=== PATIENT | female | born 1950 | race Caucasian/White ===

== ENCOUNTER 2018-07-06 07:35 | Inpatient (IN) ==
[2018-07-06] MEDS ORDERED: Ondansetron ODT 4 MG TAB.RAPDIS SL ONE (07:47)
[2018-07-06] MEDS ORDERED: *HR* FentaNYL (PF) 100 MCG/2 ML VIAL IVP ONE (07:47)
--- NOTE | 2018-07-06 07:53 | Emergency Department Note ---
Disposition Clinical Impression: Abdominal pain, Gastric ulcer, Intra-abdominal free air of unknown etiology Disposition: Admitted As Inpatient Condition: Fair Time of Disposition: 12:16 Abdominal Pain HPI - General Chief Complaint: ED Abdominal Pain Stated Complaint: ABD Pain Time Seen by Provider: 07/06/18 07:35 Source: patient Mode of arrival: EMS Limitations: no limitations Vital Signs Reviewed: Yes - History of Present Illness HPI Narrative: 67-year-old female past medical history of arthritis and diabetes presenting to the emergency department with one-week history of epigastric abdominal pain. Patient states that the pain has been progressively worsening over this time; however, this morning she was woken out of her sleep due to severe sharp epigastric pain. Says that she has never experienced pain like this before, and states that it is associated with nausea and vomiting. She states that she has vomited twice today. The vomitus is clear. She is unable to tolerate anything by mouth at this time secondary to nausea, states that her last by mouth intake was previous night. She denies any radiation of the pain. Denies any fevers, chills, chest pain, shortness of breath. Denies any diarrhea, hematochezia, or melena. She states she did recently have a UTI, but that was treated and she is no longer experiencing dysuria. Patient reports that she has been taking meloxicam for the previous year for arthritis, she is also been supplementing this with [id number] ibuprofen and Aleve. No history of peptic ulcers or H. pylori. - Related Data Allergies Allergy/AdvReac Type Severity Reaction Status Date / Time lisinopril AdvReac Cough Verified 07/06/18 07:47 naproxen AdvReac Abdominal Verified 07/06/18 07:47 Pain Constitutional: Denies: fever, chills Eyes: Denies: vision change Cardiovascular: Denies: chest pain Respiratory: Denies: dyspnea Gastrointestinal: Reports: abdominal pain, nausea, vomiting. Denies: diarrhea, constipation, melena, hematochezia Genitourinary: Denies: dysuria Neurological: Denies: headache Psychiatric: Denies: anxiety Abdominal Pain PMH - Past Medical History Medical history: Reports: diabetes, hypertension Psychiatric history: Reports: panic disorder - Social History Smoking status: Never smoker Alcohol use: Reports: none Drug use: Reports: none Physical Exam - General Limitations: no limitations General appearance: alert, in distress - Head Head exam: atraumatic, normocephalic - Eye Eye exam: Present: normal appearance - Neck Neck exam: Present: trachea midline - Chest Chest inspection: Present: normal inspection, symmetric chest wall rise - Respiratory Respiratory exam: Present: normal lung sounds bilaterally. Absent: wheezes - Cardiovascular Cardiovascular exam: Present: regular rate, normal rhythm, +S1, +S2 - Abdominal Exam Abdominal exam: Present: tenderness, guarding, rigidity Abdominal tenderness: Present: epigastrium - Extremities Exam Extremities exam: Present: pedal edema - Neurological Exam Neurological exam: Present: alert, oriented X3 - Psychiatric Psychiatric exam: Present: anxious - Skin Skin exam: Present: warm, dry, intact Course Course Narrative: 07:54 67-year-old female presenting with a one-week history of epigastric abdominal pain. Acute worsening of the pain this morning associated with nausea and 2 episodes of clear vomitus. Patient is in moderate distress. There is epigastric tenderness to palpation with guarding and rigidity. Will treat patient's pain and nausea symptoms. Will obtain abdominal labs and obtain CT abdomen. Patient has a history of chronic NSAID use, she is on meloxicam and has been supplementing with Aleve and ibuprofen as well. Concern for underlying gastritis versus peptic ulcer disease. We will also provide the patient with Pepcid and assess for response. 09:02 Received call from nurse, patient is having bradycardic episodes when she vomits. Suspect this was a vasovagal response to the vomiting. Episode was brief and the nurse was unable to capture an EKG during that time. Gave patient 8 mg Zofran for symptomatically control. 10:42 Received call from [facility] to inform that the patient has evidence of intraperitoneal air along with edema of the gastric antrum likely representing a perforated viscus ulcer. There were also incidental findings of an enlarged uterus with findings concerning for endometrial hyperplasia which would require further outpatient workup. Placed call to surgery, awaiting response. 11:49 Surgery agreed to evaluate the patient in the emergency department. Patient will be admitted to the hospital. Vital Signs Temperature 98.3 F 07/06/18 07:42 Pulse Rate 68 07/06/18 07:42 Respiratory Rate 18 07/06/18 07:42 Blood Pressure 157/74 07/06/18 07:42 O2 Sat by Pulse Oximetry 95 07/06/18 07:42 Temperature 98.3 F 07/06/18 07:42 Pulse Rate 81 07/06/18 11:11 Respiratory Rate 18 07/06/18 11:11 Blood Pressure 122/80 07/06/18 11:11 O2 Sat by Pulse Oximetry 94 07/06/18 11:11 Oxygen Delivery Oxygen Delivery Room Air Abdominal Pain - MDM Narrative Medical decision making narrative: 67-year-old female presenting to the emergency department due to 7 day history of epigastric pain which was severe this morning it woke her up out of her sleep. Patient states that she has a history of arthritis and has been taking meloxicam for over a year and admits to supplementing with other NSAIDs as well. No known history of ulcers or gastritis, however CT scan imaging in the emergency department revealed intraperitoneal free air as well as edema of the antrum of the stomach indicating a likely perforated viscus ulcer. Surgery was called and evaluated the patient. Patient will be admitted to the hospital. Patient received IV antibiotics and Protonix while in the emergency department. Her pain and nausea were managed. Abdomen/Pelvis CT 07/06/18 08:27 IMPRESSION: Intraperitoneal free air most likely from perforated gastric ulcer with moderate mural thickening of the gastric antrum. Associated mild ascites and right pleural effusion. Large uterine mass with mixed density primarily central. While this could represent a large degenerating fibroid, uterine or endometrial malignancy should also be considered. Further evaluation with pelvic ultrasound or MRI is recommended when feasible. Subtle higher density material layering dependently within the gallbladder possible noncalcified stones or sludge. Findings were discussed with Dr. Johansen, the resident working with Dr. Tomás Alvarez at 10:36 am on 07/06/2018. D/ / Kip Bansal MD / Kip Bansal MD Interpreting Provider: Kip Bansal MD - Medical Records Medical records reviewed: Yes I reviewed the patient's medical records. - Lab Data Lab results reviewed: Yes I reviewed the patient's lab results. Result diagrams: 07/06/18 07:56 07/06/18 07:56 Lab Results 07/06/18 07/06/18 07/06/18 Range/Units 07:56 07:56 07:56 WBC 8.3 (4.3-11.1) K/mcL RBC 4.21 (3.82-4.97) M/mcL Hgb 11.7 (11.5-15.4) g/dL Hct 37.2 (35.3-44.9) % MCV 88.4 (83.0-100.0) fL MCH 27.8 L (28.0-33.3) pg MCHC 31.5 L (31.6-35.5) g/dL RDW 14.3 (11.5-14.5) % Plt Count 238 (140-400) K/mcL MPV 8.7 L (9.4-12.4) fL Immature Gran % 0.2 (0-4) % Seg Neutrophils % 57.8 % Lymphocytes % 27.4 % Monocytes % 7.0 % Eosinophils % 7.0 % Basophils % 0.6 % Neutrophils # 4.8 (1.6-8.9) K/mcL Lymphocytes # 2.3 (0.6-4.6) K/mcL Monocytes # 0.6 (0.0-1.3) K/mcL Eosinophils # 0.6 (0.0-0.6) K/mcL Basophils # 0.1 (0.0-0.2) K/mcL Sodium 141 (136-145) mEq/L Potassium 3.2 L (3.5-5.1) mEq/L Chloride 112 H (98-107) mEq/L Carbon Dioxide 23 (23-29) mEq/L BUN 16 (8-23) mg/dL Creatinine 0.67 (0.60-1.20) mg/dL Est GFR ( Amer) > 60 (> 60) Est GFR (Non-Af Amer) > 60 (> 60) BUN/Creatinine Ratio 24 (6-26) Glucose 125 H (70-105) mg/dL Calculated Osmolality 295 (280-300) Lactic Acid 1.8 (0.5-2.2) mmol/L Calcium 7.6 L (8.6-10.3) mg/dL Total Bilirubin 0.3 (0.3-1.0) mg/dL Direct Bilirubin 0.0 (0.0-0.2) mg/dL Indirect Bilirubin 0.3 (0.0-1.2) mg/dL AST 11 L (13-39) Units/L ALT 8 (7-52) Units/L Alkaline Phosphatase 62 (34-104) Units/L Troponin I < 0.03 (< 0.04) ng/mL Serum Total Protein 5.3 L (6.4-8.9) g/dL Albumin 3.1 L (3.5-5.7) g/dL Globulin 2.2 L (2.4-3.5) g/dL Albumin/Globulin Ratio 1.4 (1.1-2.2) Lipase 73 (11-82) Units/L 07/06/18 Range/Units 11:03 WBC (4.3-11.1) K/mcL RBC (3.82-4.97) M/mcL Hgb (11.5-15.4) g/dL Hct (35.3-44.9) % MCV (83.0-100.0) fL MCH (28.0-33.3) pg MCHC (31.6-35.5) g/dL RDW (11.5-14.5) % Plt Count (140-400) K/mcL MPV (9.4-12.4) fL Immature Gran % (0-4) % Seg Neutrophils % % Lymphocytes % % Monocytes % % Eosinophils % % Basophils % % Neutrophils # (1.6-8.9) K/mcL Lymphocytes # (0.6-4.6) K/mcL Monocytes # (0.0-1.3) K/mcL Eosinophils # (0.0-0.6) K/mcL Basophils # (0.0-0.2) K/mcL Sodium (136-145) mEq/L Potassium (3.5-5.1) mEq/L Chloride (98-107) mEq/L Carbon Dioxide (23-29) mEq/L BUN (8-23) mg/dL Creatinine (0.60-1.20) mg/dL Est GFR ( Amer) (> 60) Est GFR (Non-Af Amer) (> 60) BUN/Creatinine Ratio (6-26) Glucose (70-105) mg/dL Calculated Osmolality (280-300) Lactic Acid 1.3 (0.5-2.2) mmol/L Calcium (8.6-10.3) mg/dL Total Bilirubin (0.3-1.0) mg/dL Direct Bilirubin (0.0-0.2) mg/dL Indirect Bilirubin (0.0-1.2) mg/dL AST (13-39) Units/L ALT (7-52) Units/L Alkaline Phosphatase (34-104) Units/L Troponin I (< 0.04) ng/mL Serum Total Protein (6.4-8.9) g/dL Albumin (3.5-5.7) g/dL Globulin (2.4-3.5) g/dL Albumin/Globulin Ratio (1.1-2.2) Lipase (11-82) Units/L - Radiology Data Radiology results reviewed: Yes I reviewed the patient's radiology results. - EKG Data EKG attestation: Yes I reviewed and interpreted this EKG. EKG results narrative: EKG shows sinus rhythm with a heart rate of 68. No axis deviation. Early RV progression. Normal [place] interval, no QT elongation. No obvious ST elevations or depressions. Sinus rhythm, normal EKG. Attestation Statement - Attestation Attestation: I, Momo Rm DO, examined this patient [id number] and my medical decision-making was reviewed with Jayy Christy PGY-1, Resident Physician. I agree with the documented findings, disposition and treatment plan as described except to the extent set forth below. Please see my progress notes for details.
[2018-07-06] MEDS ORDERED: Famotidine 20 MG/2 ML VIAL IVP ONE (07:58)
[2018-07-06] MEDS ORDERED: Ondansetron 4 MG/2 ML VIAL ONE (07:58)
[2018-07-06] MEDS ORDERED: Ondansetron 4 MG/2 ML VIAL IVP ONE ×2 (08:11→09:01)
[2018-07-06] MEDS ORDERED: 0.9 % Sodium Chloride 1,000 ML IVC ONE (08:14)
[2018-07-06 08:19] LABS: Basophils # 0.1 K/mcL (0.0-0.2); Basophils % 0.6 %; Eosinophils # 0.6 K/mcL (0.0-0.6); Hematocrit 37.2 % (35.3-44.9); Hemoglobin 11.7 g/dL (11.5-15.4); Immature Granulocytes % 0.2 % (0-4); Lymphocytes # 2.3 K/mcL (0.6-4.6); Lymphocytes % 27.4 %; Mean Corpuscular HGB Conc 31.5 g/dL (31.6-35.5); Mean Corpuscular Hemoglobin 27.8 pg (28.0-33.3); Mean Corpuscular Volume 88.4 fL (83.0-100.0); Mean Platelet Volume 8.7 fL (9.4-12.4); Monocytes # 0.6 K/mcL (0.0-1.3); Neutrophils # 4.8 K/mcL (1.6-8.9); Platelet Count 238 K/mcL (140-400); Red Blood Count 4.21 M/mcL (3.82-4.97); Red Cell Distribution Width 14.3 % (11.5-14.5); Segmented Neutrophils % 57.8 %
[2018-07-06] MEDS ORDERED: Isovue-370 500 ML INFUS..BTL IV ONE (08:27)
--- NOTE | 2018-07-06 08:27 | Emergency Department Note ---
Disposition Clinical Impression: Abdominal pain, Gastric ulcer, Intra-abdominal free air of unknown etiology Disposition: Admitted As Inpatient Condition: Fair Time of Disposition: 12:07 General Adult HPI - General Chief complaint: ED Abdominal Pain Stated complaint: ABD Pain Time Seen by Provider: 07/06/18 07:35 Source: patient Mode of arrival: EMS Limitations: no limitations - History of Present Illness Pain Scale: 9 - Related Data Allergies Allergy/AdvReac Type Severity Reaction Status Date / Time lisinopril AdvReac Cough Verified 07/06/18 07:47 naproxen AdvReac Abdominal Verified 07/06/18 07:47 Pain Constitutional: Denies: fever, chills Eyes: Denies: vision change Cardiovascular: Denies: chest pain Respiratory: Denies: dyspnea Gastrointestinal: Reports: abdominal pain, nausea, vomiting. Denies: diarrhea, constipation, melena, hematochezia Genitourinary: Denies: dysuria Neurological: Denies: headache Psychiatric: Denies: anxiety Past Medical History - Past Medical History Medical history: Reports: diabetes, hypertension Surgical history: Reports: , orthopedic, other Psychiatric history: Reports: panic disorder - Social History Smoking Status: Never smoker Smokeless Tobacco Status: No Alcohol use: Reports: none Drug use: Reports: none Physical Exam - General Limitations: no limitations General appearance: alert, in distress Course Vital Signs Temperature 98.3 F 07/06/18 07:42 Pulse Rate 68 07/06/18 07:42 Respiratory Rate 18 07/06/18 07:42 Blood Pressure 157/74 07/06/18 07:42 O2 Sat by Pulse Oximetry 95 07/06/18 07:42 Temperature 98.3 F 07/06/18 07:42 Pulse Rate 81 07/06/18 11:11 Respiratory Rate 18 07/06/18 11:11 Blood Pressure 122/80 07/06/18 11:11 O2 Sat by Pulse Oximetry 94 07/06/18 11:11 Oxygen Delivery Oxygen Delivery Room Air Medical Decision Making - Lab Data Result diagrams: 07/06/18 07:56 07/06/18 07:56 Lab Results 07/06/18 07/06/18 07/06/18 Range/Units 07:56 07:56 07:56 WBC 8.3 (4.3-11.1) K/mcL RBC 4.21 (3.82-4.97) M/mcL Hgb 11.7 (11.5-15.4) g/dL Hct 37.2 (35.3-44.9) % MCV 88.4 (83.0-100.0) fL MCH 27.8 L (28.0-33.3) pg MCHC 31.5 L (31.6-35.5) g/dL RDW 14.3 (11.5-14.5) % Plt Count 238 (140-400) K/mcL MPV 8.7 L (9.4-12.4) fL Immature Gran % 0.2 (0-4) % Seg Neutrophils % 57.8 % Lymphocytes % 27.4 % Monocytes % 7.0 % Eosinophils % 7.0 % Basophils % 0.6 % Neutrophils # 4.8 (1.6-8.9) K/mcL Lymphocytes # 2.3 (0.6-4.6) K/mcL Monocytes # 0.6 (0.0-1.3) K/mcL Eosinophils # 0.6 (0.0-0.6) K/mcL Basophils # 0.1 (0.0-0.2) K/mcL Sodium 141 (136-145) mEq/L Potassium 3.2 L (3.5-5.1) mEq/L Chloride 112 H (98-107) mEq/L Carbon Dioxide 23 (23-29) mEq/L BUN 16 (8-23) mg/dL Creatinine 0.67 (0.60-1.20) mg/dL Est GFR ( Amer) > 60 (> 60) Est GFR (Non-Af Amer) > 60 (> 60) BUN/Creatinine Ratio 24 (6-26) Glucose 125 H (70-105) mg/dL Calculated Osmolality 295 (280-300) Lactic Acid 1.8 (0.5-2.2) mmol/L Calcium 7.6 L (8.6-10.3) mg/dL Total Bilirubin 0.3 (0.3-1.0) mg/dL Direct Bilirubin 0.0 (0.0-0.2) mg/dL Indirect Bilirubin 0.3 (0.0-1.2) mg/dL AST 11 L (13-39) Units/L ALT 8 (7-52) Units/L Alkaline Phosphatase 62 (34-104) Units/L Troponin I < 0.03 (< 0.04) ng/mL Serum Total Protein 5.3 L (6.4-8.9) g/dL Albumin 3.1 L (3.5-5.7) g/dL Globulin 2.2 L (2.4-3.5) g/dL Albumin/Globulin Ratio 1.4 (1.1-2.2) Lipase 73 (11-82) Units/L //18 Range/Units 11:03 WBC (4.3-11.1) K/mcL RBC (3.82-4.97) M/mcL Hgb (11.5-15.4) g/dL Hct (35.3-44.9) % MCV (83.0-100.0) fL MCH (28.0-33.3) pg MCHC (31.6-35.5) g/dL RDW (11.5-14.5) % Plt Count (140-400) K/mcL MPV (9.4-12.4) fL Immature Gran % (0-4) % Seg Neutrophils % % Lymphocytes % % Monocytes % % Eosinophils % % Basophils % % Neutrophils # (1.6-8.9) K/mcL Lymphocytes # (0.6-4.6) K/mcL Monocytes # (0.0-1.3) K/mcL Eosinophils # (0.0-0.6) K/mcL Basophils # (0.0-0.2) K/mcL Sodium (136-145) mEq/L Potassium (3.5-5.1) mEq/L Chloride (98-107) mEq/L Carbon Dioxide (23-29) mEq/L BUN (8-23) mg/dL Creatinine (0.60-1.20) mg/dL Est GFR ( Amer) (> 60) Est GFR (Non-Af Amer) (> 60) BUN/Creatinine Ratio (6-26) Glucose (70-105) mg/dL Calculated Osmolality (280-300) Lactic Acid 1.3 (0.5-2.2) mmol/L Calcium (8.6-10.3) mg/dL Total Bilirubin (0.3-1.0) mg/dL Direct Bilirubin (0.0-0.2) mg/dL Indirect Bilirubin (0.0-1.2) mg/dL AST (13-39) Units/L ALT (7-52) Units/L Alkaline Phosphatase (34-104) Units/L Troponin I (< 0.04) ng/mL Serum Total Protein (6.4-8.9) g/dL Albumin (3.5-5.7) g/dL Globulin (2.4-3.5) g/dL Albumin/Globulin Ratio (1.1-2.2) Lipase (11-82) Units/L Attestation Statement - Attestation Attestation: I, Momo Rm DO, examined this patient [id number] and my medical decision-making was reviewed with Jayy Christy PGY-1, Resident Physician. I agree with the documented findings, disposition and treatment plan as described except to the extent set forth below. Please see my progress notes for details. 67-year-old female presents to the emergency room with 1 week of epigastric discomfort and pain. She has chronic arthritis and takes Mobic for symptomatic control. She has been adding on Motrin with the Mobic at home. Over the last week every time she eats something her stomach feels better but in between then she has a gnawing burning sensation in her epigastrium. She denies any fevers or chills. Denies any diarrhea. She has had nausea with intermittent vomiting. Denies any falls trauma or injury. Denies any cardiac history and does not have any specific complaint of chest pain or shortness of breath. Patient has not traveled outside the country and has not eaten at any abnormal places. Known in the family has been sick. Physical exam shows a well-appearing female who is in some mild distress. Lungs are clear heart is regular. Abdomen is soft she does have voluntary guarding to the epigastrium. She has no point tenderness or rigidity. Bowel sounds are present in all 4 quadrants. There is no rashes or lesions noted on exam. Patient is in some moderate distress. Fluids nausea medication and Pepcid will be given at this time. Single dose of pain medication has been ordered. Patient will have screening evaluation a chest x-ray EKG CBC chemistry liver function testing and lipase along with urinalysis. TROPONIN will be added on as well with concern for mimicking cardiac related etiology. CT imaging the abdomen will be resulted. Disposition to be determined. Symptoms appear to be most consistent with acute medication- induced gastritis secondary to the overuse of mobile and Motrin. HER symptoms do get better when she eats food and worse when she is sitting with an empty stomach or takes her medication on an empty stomach. Patient is otherwise c linically stable she is in moderate distress at this time and will be further evaluated and treated here in the department. See detailed documentation of the physical exam, medical intervention, medical decision-making and disposition in the resident physician's note. No critical care applied to the patient's treatment course at this time. 1000 CT is reviewed by myself and there is concern for intra-abdominal free air. This is concerning for a perforated peptic ulcer based on this patient's symptoms and presentation. Antibiotic regimen started this time. Once the CT read is at the patient will be discussed and reviewed with the on-call surgeon. No other acute concerns or issues are noted initially at this point. Patient is otherwise been hemodynamically stable. Repeat doses of pain medication have been provided. 1035 Radiology confirmed intra-abdominal free air. There is inflammation around the antrum of the stomach. Is concerning for perforated ulcer. On-call surgeon as well as commercial horticulture instructor will be contacted for admission processes. Antibiotics and pain medication of been given. Pepcid as well as Protonix have been ordered here in the emergency room at this time. Disposition will be admission for continuation of care. Surgery evaluated the patient here in the emergency room and will except the patient to their service for the definitive care. No other recommendations or concerns noted this time. Patient is otherwise clinically stable time of admission
[2018-07-06 08:41] LABS: Troponin I < 0.03 ng/mL (< 0.04)
[2018-07-06 08:42] LABS: Alanine Aminotransferase 8 Units/L (7-52); Albumin 3.1 g/dL (3.5-5.7); Albumin/Globulin Ratio 1.4 (1.1-2.2); Alkaline Phosphatase 62 Units/L (34-104); Aspartate Amino Transferase 11 Units/L (13-39); BUN/Creatinine Ratio 24 (6-26); Bilirubin,Indirect 0.3 mg/dL (0.0-1.2); Bilirubin,Total 0.3 mg/dL (0.3-1.0); Blood Urea Nitrogen 16 mg/dL (8-23); Calcium 7.6 mg/dL (8.6-10.3); Carbon Dioxide 23 mEq/L (23-29); Chloride 112 mEq/L (98-107); Globulin 2.2 g/dL (2.4-3.5); Glucose 125 mg/dL (70-105); Lipase 73 Units/L (11-82); Osmolality,Calculated 295 (280-300); Potassium 3.2 mEq/L (3.5-5.1); Sodium 141 mEq/L (136-145); Total Protein 5.3 g/dL (6.4-8.9); eGFR For Non-African Americans > 60 (> 60)
[2018-07-06] MEDS ORDERED: *HR* HYDROmorphone (PF) 1 MG/ML SYRINGE IVP ONE ×2 (09:09→10:38)
[2018-07-06] MEDS ORDERED: Piperacillin/Tazobactam 3.375 GM in 0.9 % Sodium Chloride Mini Bag 100 ML IVPB ONE (10:22)
[2018-07-06] MEDS ORDERED: Pantoprazole 40 MG VIAL IVP ONE (10:24)
[2018-07-06] MEDS ORDERED: *HR* Promethazine 25 MG/ML VIAL IVP ONE (10:58)
[2018-07-06] MEDS ORDERED: Lidocaine Jelly 11 ml Syringe MM STA (12:51)
[2018-07-06] MEDS ORDERED: Ondansetron 4 MG/2 ML VIAL IVP PRN (12:55)
[2018-07-06] MEDS ORDERED: *HR* Dextrose 50 % in Water (Syg) 50 ML SYRINGE IVP PRN (12:57)
[2018-07-06] MEDS ORDERED: D5% in Water 1,000 ML IVC PRN (12:57)
[2018-07-06] MEDS ORDERED: Dextrose Gel 15 GM/37.5 ML TUBE PO PRN ×2 (12:57)
[2018-07-06 13:57] LABS: Bilirubin,Urine Negative (Negative); Blood,Urine Negative (Negative); Clarity,Urine Clear (Clear); Color,Urine Yellow (Yellow); Glucose,Urine (UA) Normal (Normal); Ketones,Urine Negative (Negative); Leukocyte Esterase,Urine Negative (Negative); Nitrite,Urine Negative (Negative); Protein,Urine Trace mg/dL (Neg-Trace); Specific Gravity,Urine > 1.030 (1.010-1.025); Urobilinogen,Urine Normal (Normal)
--- NOTE | 2018-07-06 14:05 | General Surg History&Physical ---
Date of Encounter: 07/06/18 Time of Encounter: 11:30 Assessment and Plan (1) Perforated gastric ulcer Current Visit: Yes Status: Acute The assessment and plan as outlined above was discussed with the patient and/or family members who expressed understanding and agreement. All questions were answered. CT of the abdomen and pelvis with IV and no oral contrast completed on 07/06/2018 noted free air related to perforated gastric ulcer, moderate mural th ickening of the gastric antrum, mild associated ascites. Perforated gastric ulcer likely exacerbated by meloxicam use. Would avoid NSAIDs in the future. Plan: supportive care and discomfort management NPO NG to low intermittent wall suction PD fluids PRN anti-emetics and pain control repeat a.m. lambs serial abdominal exams Jernigan catheter for accurate intake and output Qualifiers: Gastric ulcer chronicity: acute Qualified Code(s): K25.1 - Acute gastric ulcer with perforation (2) Anxiety disorder Current Visit: Yes Status: Acute chronic xanex BID will continue benzo use prn Qualifiers: Anxiety disorder type: panic disorder without agoraphobia Qualified Code(s): F41.0 - Panic disorder [episodic paroxysmal anxiety] (3) Osteoarthritis Current Visit: Yes Status: Acute IV ofirmev if needed Avoid NSAIDs Qualifiers: Osteoarthritis location: unspecified site Osteoarthritis type: primary Qualified Code(s): M19.91 - Primary osteoarthritis, unspecified site (4) Hypertension Current Visit: Yes Status: Acute PRN metoprolol IV for SBP greater than 150, hold for SBP less than 110 Qualifiers: Hypertension type: essential hypertension Qualified Code(s): I10 - Essential (primary) hypertension (5) Diabetes Current Visit: Yes Status: Acute NPO Q6H accuchecks prn insulin coverage Qualifiers: Diabetes mellitus type: type 2 Diabetes mellitus snf insulin use: without snf use Diabetes mellitus complication status: with unspecified complications Qualified Code(s): E11.8 - Type 2 diabetes mellitus with unspecified complications (6) Uterine mass Current Visit: Yes Status: Acute CT abdomen and pelvis with IV contrast notes the large mass involving the uterus with mixed density, measuring just over 10 cm, primarily involving the endometrial canal with the rind of [place] drama., Urinary bladder is compressed inferior the, small amount of pelvic fluid. Of note she did have a pelvic MRI in October 2015 which demonstrated an enlarged uterus at 14.6 x 12 x 11.5 cm and a large dominant uterine fibroids measuring 10.3 x 9.8 x 10.7 cm. Per record review, she saw Dr. Baeza 05/11/2016 at which time he noted the uterine mass and that her "uterus has been 14 to 16 weeks size for years." He recommended an ultrasound to compare to the MRI but the patient refused. Plan: Consider consult to OB vs outpatient follow-up pending clinical course. History of Present Illness Chief complaint: Mid-upper abdominal pain, vomiting HPI: Ms. Patel is a 67 year old female who has a past medical history of anxiety (on chronic Xanax), hypertension, diabetes GERD (treated with tums and Zantac), osteo arthritis pain (treated with meloxicam), and a past surgical history of orthopedic surgeries, she is never a smoker, denies alcohol or drug use. She reports a family history of colon cancer (brother, in his 40s). She reports her last colonoscopy was approximately 2 years ago and hemorrhoids. She has never had an upper endoscopy. She presented on 07/06/2018 following a seven-day history of mid-upper abdominal pain with an abrupt increase in discomfort this a.m. She states her pain was a 10 out of 10 this a.m. but is currently 8 out of 10 after getting pain medication. She reports vomiting 4 times since 7 AM this morning which was clear, no coffee ground appearance or bright red blood noted. She denies fever, chills, headache, dizziness, chest pain, shortness of breath, constipation, black, bloody, or tarry stool. She reports her last bowel movement was yesterday and she typically has a bowel movement every other day without laxative use. She states she recently had a urinary tract infection for which she was treated and this is resolved. She denies further urinary signs or symptoms. Past Med Surg Social Fam HX - Past Medical History Source: patient, old records reviewed Medical history: arthritis, diabetes, GERD, hypertension Psychiatric history: panic disorder - Past Surgical History Surgical History: , orthopedic, other - Social History Smoking Status: Never smoker Smokeless Tobacco Status: No Alcohol use: none Drug use: none Occupational status: unemployed Current living situation: Home - Independent Activity Level: Independent ambulation Recent Out of Country Travel Within the Last 8 Weeks: No Exposure or Possible Exposure to Illness During Travel: No Medications and Allergies ALPRAZolam [Xanax 0.5 MG Tablet] 0.5 mg PO BID PRN 07/06/18 [History] Aspirin [Adult Aspirin] 81 mg PO DAILY 07/06/18 [History] Atenolol [Tenormin] 50 mg PO DAILY 07/06/18 [History] Losartan/Hydrochlorothiazide [Hyzaar 100-25 Tablet] 1 tab PO DAILY 07/06/18 [History] Meloxicam 15 mg PO DAILY 07/06/18 [History] Multivit-Min/FA/Lycopen/Lutein [A Thru Z Select Multivit Tab] 1 tab PO DAILY 07/06/18 [History] Simvastatin [Zocor] 20 mg PO QPM 07/06/18 [History] metFORMIN [Glucophage] 500 mg PO BIDWM 07/06/18 [History] Allergy/AdvReac Type Severity Reaction Status Date / Time lisinopril AdvReac Cough Verified 07/06/18 07:47 naproxen AdvReac Abdominal Verified 07/06/18 07:47 Pain Review of Systems All systems PM: reviewed and no additional remarkable complaints except as stated All systems PM: The remainder of the systems were reviewed and are negative General Surgery Exam Initial Vital Signs Temp Pulse Resp BP Pulse Ox 98.3 F 68 18 157/74 95 07/06/18 07:42 07/06/18 07:42 07/06/18 07:42 07/06/18 07:42 07/06/18 07:42 Vital Signs Temp Pulse Resp BP Pulse Ox 07/06/18 13:29 98.3 F 83 17 119/77 94 07/06/18 12:13 18 120/60 07/06/18 11:11 81 18 122/80 94 07/06/18 10:00 86 18 120/78 97 07/06/18 09:11 99 07/06/18 09:00 73 18 149/74 99 07/06/18 08:01 71 18 134/95 97 07/06/18 07:42 98.3 F 68 18 157/74 95 Intake and Output 07/05/18 07/06/18 07/06/18 23:59 07:59 15:59 Other: Stool Characteristics Normal for Patient Weight 97.885 kg Patient Weight 07/06/18 23:59 Weight 97.885 kg VITAL SIGNS: Reviewed. See [employer] GENERAL: In no apparent distress. Drowsy. HEENT: Normocephalic, atraumatic, pupils are equal and reactive, extraocular motions intact, oropharynx is pink and moist, there is no neck adenopathy or JVD noted. CHEST/RESPIRATORY: The thorax is free from signs of trauma. Lung sounds: clear to auscultation, normal respiratory effort CARDIAC: Regular rate and rhythm. Normal S1 and S2, without murmurs, gallops, or rubs. VASCULAR: No Edema. 2+ peripheral pulses. ABDOMEN: soft, epigastric tenderness, active bowel sounds, involuntary guarding MUSCULOSKELETAL: Good range of motion of all major joints. Extremities without clubbing, cyanosis or edema. NEUROLOGIC EXAM: Alert and oriented x 3. Speech normal. Follows commands. PSYCHIATRIC: Mood normal. SKIN: No rash or lesions. Results - Labs 07/06/18 07:56 07/06/18 07:56 Abnormal lab results MCH 27.8 pg (28.0-33.3) L 07/06/18 07:56 MCHC 31.5 g/dL (31.6-35.5) L 07/06/18 07:56 MPV 8.7 fL (9.4-12.4) L 07/06/18 07:56 Potassium 3.2 mEq/L (3.5-5.1) L 07/06/18 07:56 Chloride 112 mEq/L (98-107) H 07/06/18 07:56 Glucose 125 mg/dL (70-105) H 07/06/18 07:56 Calcium 7.6 mg/dL (8.6-10.3) L 07/06/18 07:56 AST 11 Units/L (13-39) L 07/06/18 07:56 Serum Total Protein 5.3 g/dL (6.4-8.9) L 07/06/18 07:56 Albumin 3.1 g/dL (3.5-5.7) L 07/06/18 07:56 Globulin 2.2 g/dL (2.4-3.5) L 07/06/18 07:56 Diabetes panel 07/06/18 Range/Units 07:56 Sodium 141 (136-145) mEq/L Potassium 3.2 L (3.5-5.1) mEq/L Chloride 112 H (98-107) mEq/L Carbon Dioxide 23 (23-29) mEq/L BUN 16 (8-23) mg/dL Creatinine 0.67 (0.60-1.20) mg/dL Glucose 125 H (70-105) mg/dL Calcium 7.6 L (8.6-10.3) mg/dL AST 11 L (13-39) Units/L ALT 8 (7-52) Units/L Alkaline Phosphatase 62 (34-104) Units/L Albumin 3.1 L (3.5-5.7) g/dL Calcium panel 07/06/18 Range/Units 07:56 Calcium 7.6 L (8.6-10.3) mg/dL Albumin 3.1 L (3.5-5.7) g/dL Pituitary panel 07/06/18 Range/Units 07:56 Sodium 141 (136-145) mEq/L Potassium 3.2 L (3.5-5.1) mEq/L Chloride 112 H (98-107) mEq/L Carbon Dioxide 23 (23-29) mEq/L BUN 16 (8-23) mg/dL Creatinine 0.67 (0.60-1.20) mg/dL Glucose 125 H (70-105) mg/dL Calcium 7.6 L (8.6-10.3) mg/dL Adrenal panel 07/06/18 Range/Units 07:56 Sodium 141 (136-145) mEq/L Potassium 3.2 L (3.5-5.1) mEq/L Chloride 112 H (98-107) mEq/L Carbon Dioxide 23 (23-29) mEq/L BUN 16 (8-23) mg/dL Creatinine 0.67 (0.60-1.20) mg/dL Glucose 125 H (70-105) mg/dL Calcium 7.6 L (8.6-10.3) mg/dL Total Bilirubin 0.3 (0.3-1.0) mg/dL AST 11 L (13-39) Units/L ALT 8 (7-52) Units/L Alkaline Phosphatase 62 (34-104) Units/L Albumin 3.1 L (3.5-5.7) g/dL All other labs normal. - Imaging CT scan - abdomen: report reviewed, image reviewed CT scan - pelvis: report reviewed, image reviewed
[2018-07-06] MEDS ORDERED: Potassium Chloride 40 MEQ, Lidocaine 1% 2 ML in D5% in Water 500 ML IVPB ONE (14:23)
[2018-07-06 14:27] LABS: Bacteria,Urine Few per hpf (None-Few); Mucus,Urine Few (Few); RBC,Urine 0-3 per hpf (0-3); Squamous Epithelial Cell,Urine Few per lpf (None-Few); WBC,Urine 0-3 per hpf (0-3)
--- NOTE | 2018-07-06 14:36 | Electrocardiograph Report ---
[address] [place] [address] Test Date: 2018-07-06 Pat Name: Taylor Patel Department: EXAM2 Room: 2A44 Gender: F [employer] Internship: : 1950 Requested By: Bambi Pineda (Bill) Order Number: [id number] Reading MD: Dhiraj Lee Measurements Intervals [place] Rate: 40 P: 82 MD: 207 QRS: 29 QRSD: 93 T: 13 QT: 390 QTc: 318 Interpretive Statements Sinus bradycardia with 2:1 AV block Electronically Signed On 07-06-2018 14:35:07 EST by Dhiraj Lee
[2018-07-06 14:54] LABS: Estimated Average Glucose 126 mg/dl
[2018-07-06] MEDS: 0.9 % Sodium Chloride 1,000 ML IVC SCH (15:23)
[2018-07-06] MEDS: OXYCODONE Oral CONC 10 MG/0.5 ML ORAL.SYG SL PRN (15:24)
[2018-07-06] MEDS: Insulin LISPRO 300 UNITS/3 ML VIAL SQ SCH (18:16)
[2018-07-06] MEDS: *HR* Heparin 5,000 UNIT/ML VIAL SQ SCH (18:16)
[2018-07-07] MEDS: 0.9 % Sodium Chloride 1,000 ML IVC SCH ×3 (00:12→18:42)
[2018-07-07] MEDS: Pantoprazole 40 MG VIAL IVP SCH ×3 (00:13→21:12)
[2018-07-07] MEDS: Insulin LISPRO 300 UNITS/3 ML VIAL SQ SCH ×3 (00:53→18:41)
[2018-07-07 05:04] LABS: Basophils % 0.1 %; Hematocrit 35.2 % (35.3-44.9); Hemoglobin 11.1 g/dL (11.5-15.4); Immature Granulocytes % 0.4 % (0-4); Lymphocytes # 1.1 K/mcL (0.6-4.6); Lymphocytes % 10.2 %; Mean Corpuscular HGB Conc 31.5 g/dL (31.6-35.5); Mean Corpuscular Hemoglobin 27.9 pg (28.0-33.3); Mean Corpuscular Volume 88.4 fL (83.0-100.0); Mean Platelet Volume 8.8 fL (9.4-12.4); Monocytes # 1.2 K/mcL (0.0-1.3); Monocytes % 11.7 %; Neutrophils # 8.3 K/mcL (1.6-8.9); Platelet Count 197 K/mcL (140-400); Red Blood Count 3.98 M/mcL (3.82-4.97); Red Cell Distribution Width 14.6 % (11.5-14.5); Segmented Neutrophils % 77.6 %
[2018-07-07 05:45] LABS: BUN/Creatinine Ratio 24 (6-26); Blood Urea Nitrogen 20 mg/dL (8-23); Carbon Dioxide 25 mEq/L (23-29); Chloride 106 mEq/L (98-107); Glucose 132 mg/dL (70-105); Magnesium 1.7 mg/dL (1.6-2.6); Osmolality,Calculated 290 (280-300); Phosphorous 3.3 mg/dL (2.7-4.5); Potassium 4.2 mEq/L (3.5-5.1); Sodium 138 mEq/L (136-145); eGFR For Non-African Americans > 60 (> 60)
[2018-07-07] MEDS: *HR* Promethazine 25 MG/ML VIAL IVP PRN ×2 (05:54→21:12)
[2018-07-07] MEDS: *HR* Heparin 5,000 UNIT/ML VIAL SQ SCH ×2 (05:54→18:34)
--- NOTE | 2018-07-07 07:31 | Electrocardiograph Report ---
[facility] Test Date: 2018-07-06 Pat Name: Taylor Patel Department: EXAM2 Room: 2A44 Gender: F Watch Leader: : 1950 Requested By: Tomás Alvarez Order Number: [id number] Reading MD: Francisco Gregorio Measurements Intervals [place] Rate: 68 P: 23 MS: 188 QRS: 37 QRSD: 86 T: 20 QT: 365 QTc: 389 Interpretive Statements Sinus rhythm Electronically Signed On 07-07-2018 7:29:42 EST by Francisco Gregorio
[2018-07-07] MEDS ORDERED: Lidocaine -MPF 1% 5 ML AMPUL INFILT ONE (10:20)
[2018-07-07] MEDS ORDERED: D10% in Water 500 ML IVC PRN (11:58)
--- NOTE | 2018-07-07 12:27 | General Surgery Progress Note ---
Date of Encounter: 07/07/18 Time of Encounter: 09:00 - Assessment and Plan (1) Perforated gastric ulcer Current Visit: Yes Status: Acute Abd discomfort is improved since yesterday. VSS, WBC remains normal, hgb stable 11.1. Small amount of NG output. Plan: continue supportive care and discomfort management continue NG to low intermittent wall suction. Continue NPO biotene mouth spray and Cipro call lozenges for comfort PIC line start TPN, (titrate total IV fluid MIV + TPN to TPN goal) serial abdominal exams repeat a.m. labs consider upper G.I. on Wednesday or Wednesday pending clinical course. She will need endoscopy next week. Continue IV antibiotics continue PPI BID had Carafate slurry 4 times daily. Clamp NG for 30 minutes after Carafate. P atient will ambulate during the clamps times. Continue EP CDs and incentive spirometry Qualifiers: Gastric ulcer chronicity: acute Qualified Code(s): K25.1 - Acute gastric ulcer with perforation (2) Anxiety disorder Current Visit: Yes Status: Acute Patient takes chronic Xanex at home. We did continue PRN IV benzodiazepines to prevent withdrawal. Qualifiers: Anxiety disorder type: panic disorder without agoraphobia Qualified Code(s): F41.0 - Panic disorder [episodic paroxysmal anxiety] (3) Osteoarthritis Current Visit: Yes Status: Acute Avoid NSAIDs PRN pain control Qualifiers: Osteoarthritis location: unspecified site Osteoarthritis type: primary Qualified Code(s): M19.91 - Primary osteoarthritis, unspecified site (4) Hypertension Current Visit: Yes Status: Acute PRN antihypertensives Qualifiers: Hypertension type: essential hypertension Qualified Code(s): I10 - Essential (primary) hypertension (5) Diabetes Current Visit: Yes Status: Acute Q6 Accu checks sliding scale insulin Qualifiers: Diabetes mellitus type: type 2 Diabetes mellitus superintendent container terminal insulin use: without custodial use Diabetes mellitus complication status: with unspecified complications Qualified Code(s): E11.8 - Type 2 diabetes mellitus with unspecified complications (6) Uterine mass Current Visit: Yes Status: Acute CT abdomen and pelvis with IV contrast notes the large mass involving the uterus with mixed density, measuring just over 10 cm, primarily involving the endometrial canal with the rind of [place] drama., Urinary bladder is compressed inferior the, small amount of pelvic fluid. Of note she did have a pelvic MRI in October 2015 which demonstrated an enlarged uterus at 14.6 x 12 x 11.5 cm and a large dominant uterine fibroids measuring 10.3 x 9.8 x 10.7 cm. Per record review, she saw Dr. Baeza 05/11/2016 at which time he noted the uterine mass and that her "uterus has been 14 to 16 weeks size for years." He recommended an ultrasound to compare to the MRI but the patient refused. Plan: Consider consult to OB vs outpatient follow-up pending clinical course. Subjective Patient reports: no new complaints, feels better, still having pain, pain is less, voiding w/o difficulty (per caldera cath), no flatus, no bowel movement, nausea, afebrile Narrative: No vomiting. Also reports sore throat Objective Vital Signs - Last 8 Hours Temp Pulse Resp BP Pulse Ox 07/07/18 10:41 98.3 F 96 16 157/82 93 07/07/18 06:51 98.7 F 94 16 122/71 93 Intake and Output 07/06/18 07/07/18 07/07/18 23:59 07:59 15:59 Intake Total 100 / 100 125 / 125 1000 / 1000 Output Total 500 / 500 300 / 300 Balance 100 / 100 -375 / -375 700 / 700 Intake: IV Fluids 100 / 100 100 / 100 1000 / 1000 0.9 % Sodium Chloride 1,000 ML 0 / 0 1000 / 1000 @ 125 mls/hr IVC .Q8H NOLAN Rx#: [id number] Ancef 2,000 MG In 0.9 % Sodium 100 / 100 100 / 100 Chloride 100 ML @ 200 mls/hr IVPB Q8HR NOLAN Rx#:[id number] Oral 25 / 25 Output: Gastric Tube Lavage Amount 300 / 300 Right Nare 300 / 300 Catheter 500 / 500 Other: Weight 98.6 kg Blood Glucose* 128 125 Patient Weight 07/07/18 23:59 Weight 98.6 kg - General physical appearance no distress, moderate pain - Eyes normal ocular movement - ENT normal nares (NG secured left nares), atraumatic, normocephalic - Neck Neck exam: trachea midline - Respiratory normal expansion, normal respiratory effort, clear to auscultation - Cardiovascular Cardiovascular exam: Present: RRR, murmurs - Abdomen Abdomen: Present: bowel sounds present, soft, tender Abdominal Tenderness: epigastic - Integumentary no growths - Neurologic normal coordination, normal sensation - Musculoskeletal normal posture - Psychiatric oriented to time, oriented to person, oriented to place, speech is normal, memory intact - Labs 07/07/18 04:32 07/07/18 04:32 Diabetes panel 07/06/18 07/07/18 Range/Units 13:13 04:32 Sodium 138 (136-145) mEq/L Potassium 4.2 D (3.5-5.1) mEq/L Chloride 106 (98-107) mEq/L Carbon Dioxide 25 (23-29) mEq/L BUN 20 (8-23) mg/dL Creatinine 0.85 (0.60-1.20) mg/dL Glucose 132 H (70-105) mg/dL Hemoglobin A1c 6.0 H ( - 5.6) % Calcium 9.0 (8.6-10.3) mg/dL Calcium panel 07/07/18 Range/Units 04:32 Calcium 9.0 (8.6-10.3) mg/dL Phosphorus 3.3 (2.7-4.5) mg/dL Pituitary panel 07/07/18 Range/Units 04:32 Sodium 138 (136-145) mEq/L Potassium 4.2 D (3.5-5.1) mEq/L Chloride 106 (98-107) mEq/L Carbon Dioxide 25 (23-29) mEq/L BUN 20 (8-23) mg/dL Creatinine 0.85 (0.60-1.20) mg/dL Glucose 132 H (70-105) mg/dL Calcium 9.0 (8.6-10.3) mg/dL Adrenal panel 07/07/18 Range/Units 04:32 Sodium 138 (136-145) mEq/L Potassium 4.2 D (3.5-5.1) mEq/L Chloride 106 (98-107) mEq/L Carbon Dioxide 25 (23-29) mEq/L BUN 20 (8-23) mg/dL Creatinine 0.85 (0.60-1.20) mg/dL Glucose 132 H (70-105) mg/dL Calcium 9.0 (8.6-10.3) mg/dL Consult Discharge Plan - Plan Referrals: Ruba Perkins MD [Primary Care Provider] -
[2018-07-07] MEDS: OXYCODONE Oral CONC 10 MG/0.5 ML ORAL.SYG SL PRN ×2 (12:57→18:50)
[2018-07-07] MEDS: Saliva Stimulant 100ml BOTTLE PO PRN ×2 (13:33→18:41)
[2018-07-07] MEDS ORDERED: Clinimix E 5%-15% SOLUTION 2,000 ML with MVI, adult with vitamin K 10 ML IVC SCH (17:00)
[2018-07-07] MEDS: *HR* LORazepam 2 MG/ML VIAL IVP PRN (18:34)
[2018-07-08] MEDS ORDERED: Acetaminophen IV 500 MG/50 ML INFUS..BTL IVPB ONE (01:07)
[2018-07-08] MEDS: OXYCODONE Oral CONC 10 MG/0.5 ML ORAL.SYG SL PRN ×2 (01:41→11:06)
[2018-07-08] MEDS: 0.9 % Sodium Chloride 1,000 ML IVC SCH ×3 (02:53→12:08)
[2018-07-08] MEDS: *HR* Metoprolol 5 MG/5 ML VIAL IVP PRN ×2 (02:56→11:04)
[2018-07-08] MEDS: Insulin LISPRO 300 UNITS/3 ML VIAL SQ SCH ×4 (06:35→17:22)
[2018-07-08 06:37] LABS: Basophils % 0.3 %; Eosinophils # 0.1 K/mcL (0.0-0.6); Eosinophils % 0.7 %; Hematocrit 34.1 % (35.3-44.9); Hemoglobin 10.6 g/dL (11.5-15.4); Immature Granulocytes % 0.3 % (0-4); Lymphocytes % 9.5 %; Mean Corpuscular HGB Conc 31.1 g/dL (31.6-35.5); Mean Platelet Volume 8.8 fL (9.4-12.4); Monocytes # 0.8 K/mcL (0.0-1.3); Monocytes % 7.4 %; Neutrophils # 8.9 K/mcL (1.6-8.9); Platelet Count 190 K/mcL (140-400); Red Blood Count 3.79 M/mcL (3.82-4.97); Red Cell Distribution Width 14.6 % (11.5-14.5); Segmented Neutrophils % 81.8 %
[2018-07-08] MEDS: *HR* Heparin 5,000 UNIT/ML VIAL SQ SCH ×2 (06:37→18:18)
[2018-07-08 06:56] LABS: BUN/Creatinine Ratio 27 (6-26); Blood Urea Nitrogen 20 mg/dL (8-23); Carbon Dioxide 25 mEq/L (23-29); Chloride 109 mEq/L (98-107); Glucose 140 mg/dL (70-105); Magnesium 1.8 mg/dL (1.6-2.6); Osmolality,Calculated 293 (280-300); Phosphorous 2.1 mg/dL (2.7-4.5); Potassium 4.1 mEq/L (3.5-5.1); Sodium 139 mEq/L (136-145); eGFR For Non-African Americans > 60 (> 60)
[2018-07-08] MEDS: Pantoprazole 40 MG VIAL IVP SCH ×2 (08:37→20:46)
[2018-07-08] MEDS: Saliva Stimulant 100ml BOTTLE PO PRN (12:08)
[2018-07-08] MEDS: Furosemide 40 MG/4 ML VIAL IVP SCH (14:20)
[2018-07-08] MEDS ORDERED: *HR* Metoprolol 5 MG/5 ML VIAL IVP STA (14:35)
--- NOTE | 2018-07-08 14:43 | General Surgery Progress Note ---
<Luli Hauser - Last Filed: 07/08/18 14:39> Date of Encounter: 07/08/18 Time of Encounter: 13:00 - Assessment and Plan (1) Perforated gastric ulcer Current Visit: Yes Status: Acute Abd discomfort is improved Improved; however she is noted to be febrile, short of breath at rest, and musical lung sounds. She is noted to be febrile last ni ght 102.5F, she was treated with 500 mg IV Ofirmev. She has been tachycardic since midnight. Of note IV fluids were ordered out 125 mL per hour with a titration order to total IV fluids (M IV and TPN) titrate to TPN goal (83.3). IV fluids were running at 125 mL per hour and TPN at 50 ML's per hour. She was treated with 40 mg IV Lasix, IV fluids were stopped, 5 mg IV metoprolol, and 1 g IV Ofirmev. CXR notes atelectasis versus pneumonia. We will transfer to [facility]. We will also complete a CT of the chest abdomen and pelvis with contrast. Plan: continue supportive care and discomfort management continue NG to low intermittent wall suction. Continue NPO biotene mouth spray and Cipro call lozenges for comfort Continue TPN. serial abdominal exams repeat a.m. labs Continue IV antibiotics continue PPI BID Continue Carafate slurry 4 times daily. Clamp NG for 30 minutes after Carafate. Patient will ambulate during the clamps times. Continue EP CDs and incentive spirometry Qualifiers: Gastric ulcer chronicity: acute Qualified Code(s): K25.1 - Acute gastric ulcer with perforation (2) Shortness of breath Current Visit: Yes Status: Acute Stop 0.9 normal saline 40 IV Lasix given respiratory therapy consult obtained, aggressive pulmonary toileting, scheduled duonebs transfer to [facility]. CT of the chest abdomen and pelvis as above continue to closely monitor (3) Anxiety disorder Current Visit: Yes Status: Acute Patient takes chronic Xanex at home. We did continue PRN IV benzodiazepines to prevent withdrawal. Qualifiers: Anxiety disorder type: panic disorder without agoraphobia Qualified Code(s): F41.0 - Panic disorder [episodic paroxysmal anxiety] (4) Osteoarthritis Current Visit: Yes Status: Acute Avoid NSAIDs PRN pain control Qualifiers: Osteoarthritis location: unspecified site Osteoarthritis type: primary Qualified Code(s): M19.91 - Primary osteoarthritis, unspecified site (5) Hypertension Current Visit: Yes Status: Acute PRN antihypertensives Qualifiers: Hypertension type: essential hypertension Qualified Code(s): I10 - Essential (primary) hypertension (6) Diabetes Current Visit: Yes Status: Acute Q6 Accu checks sliding scale insulin Qualifiers: Diabetes mellitus type: type 2 Diabetes mellitus fpc insulin use: without vermin exterminator use Diabetes mellitus complication status: with unspecified complications Qualified Code(s): E11.8 - Type 2 diabetes mellitus with unspecified complications (7) Uterine mass Current Visit: Yes Status: Acute CT abdomen and pelvis with IV contrast notes the large mass involving the uterus with mixed density, measuring just over 10 cm, primarily involving the endometrial canal with the rind of Samish drama., Urinary bladder is compressed inferior the, small amount of pelvic fluid. Of note she did have a pelvic MRI in October 2015 which demonstrated an enlarged uterus at 14.6 x 12 x 11.5 cm and a large dominant uterine fibroids measuring 10.3 x 9.8 x 10.7 cm. Per record review, she saw Dr. Baeza 05/11/2016 at which time he noted the uterine mass and that her "uterus has been 14 to 16 weeks size for years." He recommended an ultrasound to compare to the MRI but the patient refused. Plan: Consider consult to OB vs outpatient follow-up pending clinical course. Subjective Patient reports: pain is less, voiding w/o difficulty (per caldera), no flatus, no bowel movement, shortness of breath, fever Objective Vital Signs - Last 8 Hours Temp Pulse Resp BP Pulse Ox 07/08/18 14:32 101.3 F H 07/08/18 10:42 98.4 F 140 20 170/83 93 07/08/18 06:56 98.5 F 112 20 148/79 93 Intake and Output 07/07/18 07/08/18 07/08/18 23:59 07:59 15:59 Intake Total 100 / 100 1100 / 1100 1000 / 1000 Output Total 850 / 850 400 / 400 1050 / 1050 Balance -750 / -750 700 / 700 -50 / -50 Intake: IV Fluids 100 / 100 1100 / 1100 1000 / 1000 0.9 % Sodium Chloride 1,000 ML 1000 / 1000 1000 / 1000 @ 125 mls/hr IVC .Q8H [facility] Rx#: [id number] Ancef 2,000 MG In 0.9 % Sodium 100 / 100 100 / 100 Chloride 100 ML @ 200 mls/hr IVPB Q8HR [facility] Rx#:[id number] Output: Urine 350 / 350 Gastric Tube Lavage Amount 700 / 700 Right Nare 700 / 700 Catheter 850 / 850 400 / 400 Other: Blood Glucose* 135 127 - General physical appearance no distress, other (SOB at rest) - Eyes normal ocular movement - ENT normal nares (NG secured) - Neck Neck exam: trachea midline - Respiratory other (Decreased musical lungs) - Cardiovascular Cardiovascular exam: Present: tachycardia - Abdomen Abdomen: Present: soft, tender (improving). Absent: bowel sounds present Hernia: none - Integumentary no rash - Neurologic normal sensation - Musculoskeletal normal posture - Psychiatric oriented to time, oriented to person, oriented to place, speech is normal, memory intact - Labs 07/08/18 06:25 07/08/18 06:25 Diabetes panel 07/08/18 07/08/18 Range/Units 06:25 06:25 Sodium 139 (136-145) mEq/L Potassium 4.1 (3.5-5.1) mEq/L Chloride 109 H (98-107) mEq/L Carbon Dioxide 25 (23-29) mEq/L BUN 20 (8-23) mg/dL Creatinine 0.75 (0.60-1.20) mg/dL Glucose 140 H (70-105) mg/dL Calcium 9.0 (8.6-10.3) mg/dL Triglycerides 95 (< 150) mg/dL Calcium panel 07/08/18 Range/Units 06:25 Calcium 9.0 (8.6-10.3) mg/dL Phosphorus 2.1 L (2.7-4.5) mg/dL Pituitary panel 07/08/18 Range/Units 06:25 Sodium 139 (136-145) mEq/L Potassium 4.1 (3.5-5.1) mEq/L Chloride 109 H (98-107) mEq/L Carbon Dioxide 25 (23-29) mEq/L BUN 20 (8-23) mg/dL Creatinine 0.75 (0.60-1.20) mg/dL Glucose 140 H (70-105) mg/dL Calcium 9.0 (8.6-10.3) mg/dL Adrenal panel 07/08/18 Range/Units 06:25 Sodium 139 (136-145) mEq/L Potassium 4.1 (3.5-5.1) mEq/L Chloride 109 H (98-107) mEq/L Carbon Dioxide 25 (23-29) mEq/L BUN 20 (8-23) mg/dL Creatinine 0.75 (0.60-1.20) mg/dL Glucose 140 H (70-105) mg/dL Calcium 9.0 (8.6-10.3) mg/dL Consult Discharge Plan - Plan Referrals: Ruba Perkins MD [Primary Care Provider] - 07/18/18 1:30 pm (Please fo llow up with Dr. Rey) <Velasquez Barr - Last Filed: 07/09/18 15:10> Date of Encounter: 07/08/18 - Assessment and Plan (1) Intra-abdominal free air of unknown etiology Current Visit: Yes Status: Acute Objective Vital Signs - Last 8 Hours Temp Pulse Resp BP Pulse Ox 07/09/18 10:58 16 88 07/09/18 10:00 98.9 F 89 18 159/79 92 Intake and Output 07/08/18 07/09/18 07/09/18 23:59 07:59 15:59 Intake Total 300 / 300 200 / 200 320 / 320 Output Total 1150 / 1150 860 / 860 1735 / 1735 Balance -850 / -850 -660 / -660 -1415 / -1415 Intake: IV Fluids 300 / 300 200 / 200 200 / 200 Ofirmev 1,000 mg/100 ml 1,000 200 / 200 100 / 100 100 / 100 mg In 100 ml @ 400 mls/hr IVPB Q6H [facility] Rx#:[id number] Ancef 2,000 MG In 0.9 % Sodium 100 / 100 100 / 100 100 / 100 Chloride 100 ML @ 200 mls/hr IVPB Q8HR [facility] Rx#:[id number] Oral 0 / 0 0 / 0 120 / 120 Output: Urine 0 / 0 0 / 0 Gastric Tube Lavage Amount 0 / 0 Right Nare 0 / 0 Catheter 1000 / 1000 760 / 760 1385 / 1385 Urethral (Caldera) 0 / 0 0 / 0 225 / 225 Gastric Drainage 150 / 150 100 / 100 350 / 350 Other: Meal NPO Percent of Meal Consumed 0% # Bowel Movements 0 0 Weight 100.2 kg Blood Glucose* 149 166 143 Patient Weight 07/09/18 23:59 Weight 100.2 kg - Labs 07/09/18 04:20 07/09/18 04:20 Diabetes panel 07/09/18 Range/Units 04:20 Sodium 138 (136-145) mEq/L Potassium 3.4 L (3.5-5.1) mEq/L Chloride 105 (98-107) mEq/L Carbon Dioxide 28 (23-29) mEq/L BUN 18 (8-23) mg/dL Creatinine 0.60 (0.60-1.20) mg/dL Glucose 178 H (70-105) mg/dL Calcium 8.8 (8.6-10.3) mg/dL Calcium panel 07/09/18 Range/Units 04:20 Calcium 8.8 (8.6-10.3) mg/dL Phosphorus 1.5 L (2.7-4.5) mg/dL Pituitary panel 07/09/18 Range/Units 04:20 Sodium 138 (136-145) mEq/L Potassium 3.4 L (3.5-5.1) mEq/L Chloride 105 (98-107) mEq/L Carbon Dioxide 28 (23-29) mEq/L BUN 18 (8-23) mg/dL Creatinine 0.60 (0.60-1.20) mg/dL Glucose 178 H (70-105) mg/dL Calcium 8.8 (8.6-10.3) mg/dL Adrenal panel 07/09/18 Range/Units 04:20 Sodium 138 (136-145) mEq/L Potassium 3.4 L (3.5-5.1) mEq/L Chloride 105 (98-107) mEq/L Carbon Dioxide 28 (23-29) mEq/L BUN 18 (8-23) mg/dL Creatinine 0.60 (0.60-1.20) mg/dL Glucose 178 H (70-105) mg/dL Calcium 8.8 (8.6-10.3) mg/dL - Attending Attestation I have personally performed a face to face evaluation on this patient. I have reviewed and agree with the care plan. History and Exam by me shows: Review the assessment and evaluation with the nurse practitioner. Patient with elevated heart rate in the 120-130 range. Also noted elevated temperature. Patient states that she has really no current abdominal pain. On exam her abdomen is soft to palpation with positive bowel sounds. NG tube in place. Will order CT scan of the abdomen and pelvis as well as CT scan of the chest given her rhonchi on chest examination. Continue with IV antibiotics. Continue Protonix.
[2018-07-08] MEDS ORDERED: Isovue-370 500 ML INFUS..BTL IV ONE (15:15)
[2018-07-08] MEDS: Ipratropium/Albuterol Neb 3 ML IH SCH ×2 (16:20→16:34)
[2018-07-08] MEDS ORDERED: Clinimix E 5%-15% SOLUTION 2,000 ML with MVI, adult with vitamin K 10 ML IVC SCH (17:00)
[2018-07-08] MEDS: Acetaminophen IV 1,000 MG/100 ML INFUS..BTL IVPB SCH ×2 (17:10→20:45)
--- NOTE | 2018-07-08 17:58 | Internal Medicine Consult Note ---
<Ayde Catalan - Last Filed: 07/08/18 20:43> Date of Encounter: 07/08/18 - Time Spent With Patient Total time spent is greater than 50% in coordination of care (as documented) at patient's floor/unit and/or counseling patient: Internal Medicine - CN: HPI - Data of Consult Requesting Physician: Blil Pineda DO - Consult Narrative History of present illness: Ms. Patel is a 67 year old female Internal Medicine - CN: Meds ALPRAZolam [Xanax 0.5 MG Tablet] 0.5 mg PO BID PRN 07/06/18 [History] Aspirin [Adult Aspirin] 81 mg PO DAILY 07/06/18 [History] Atenolol [Tenormin] 50 mg PO DAILY 07/06/18 [History] Losartan/Hydrochlorothiazide [Hyzaar 100-25 Tablet] 1 tab PO DAILY 07/06/18 [History] Meloxicam 15 mg PO DAILY 07/06/18 [History] Multivit-Min/FA/Lycopen/Lutein [A Thru Z Select Multivit Tab] 1 tab PO DAILY 07/06/18 [History] Simvastatin [Zocor] 20 mg PO QPM 07/06/18 [History] metFORMIN [Glucophage] 500 mg PO BIDWM 07/06/18 [History] Allergy/AdvReac Type Severity Reaction Status Date / Time lisinopril AdvReac Cough Verified 07/06/18 07:47 naproxen AdvReac Abdominal Verified 07/06/18 07:47 Pain Hospitalist - CN: Exam - Constitutional Vitals: Temp Pulse Resp BP Pulse Ox 99.6 F 95 18 138/71 92 07/08/18 20:14 07/08/18 20:14 07/08/18 20:14 07/08/18 20:14 07/08/18 20:14 Internal Medicine - CN: Reslt - Labs CBC & Chem 7: 07/08/18 06:25 07/08/18 06:25 Labs: Short CBC 07/08/18 Range/Units 06:25 WBC 10.9 (4.3-11.1) K/mcL Hgb 10.6 L (11.5-15.4) g/dL Hct 34.1 L (35.3-44.9) % Plt Count 190 (140-400) K/mcL Neutrophils # 8.9 (1.6-8.9) K/mcL BMP 07/08/18 06:25 Sodium 139 Potassium 4.1 Chloride 109 H Carbon Dioxide 25 BUN 20 Creatinine 0.75 Glucose 140 H Calcium 9.0 - ABG Interpretation ABG results: PT/INR, D-dimer PT 13.2 Seconds (9.4-12.1) H 07/08/18 19:03 - Impressions Impressions Chest X-Ray 07/06/18 08:37 IMPRESSION: Worsening appearance of left basilar consolidation compared to prior of 07/06/2018. D/ / Jaison Guevara / Jaison Guevara Interpreting Provider: Jaison Guevara Chest X-Ray 07/08/18 13:15 IMPRESSION: 1. Right-sided PICC terminates in the SVC. 2. Bibasilar airspace disease could represent atelectasis or pneumonia. D/ / 07/08/2018 14:20:56 Lonny Chaudhari MD / Misty Aguero Interpreting Provider: Lonny Chaudhari MD Chest CT 07/08/18 15:15 IMPRESSION: 1. There are inflammatory changes surrounding the stomach as well as pneumoperitoneum and ascites, most pronounced along the left lobe of the liver. This is compatible with the history of a gastric perforation. 2. Mild bilateral hydronephrosis. 3. Complicated enlarged uterine fibroid measuring 10.6 x 10.4 cm. Pelvic MRI with IV contrast may be of benefit for further evaluation. 4. Larger bilateral pleural effusions, moderate in size, with increased atelectasis in the lung bases. 5. Atherosclerotic disease. D/ / 07/08/2018 17:01:31 Cullen Mata MD / ole Interpreting Provider: Cullen Mata MD Abdomen/Pelvis CT 07/08/18 15:16 IMPRESSION: 1. There are inflammatory changes surrounding the stomach as well as pneumoperitoneum and ascites, most pronounced along the left lobe of the liver. This is compatible with the history of a gastric perforation. 2. Mild bilateral hydronephrosis. 3. Complicated enlarged uterine fibroid measuring 10.6 x 10.4 cm. Pelvic MRI with IV contrast may be of benefit for further evaluation. 4. Larger bilateral pleural effusions, moderate in size, with increased atelectasis in the lung bases. 5. Atherosclerotic disease. D/ / 07/08/2018 17:01:31 Cullen Mata MD / ole Interpreting Provider: Cullen Mata MD Consult Discharge Plan - Plan Referrals: Ruba Perkins MD [Primary Care Provider] - 07/18/18 1:30 pm (Please follow up with Dr. Rey) - Attending Attestation I examined this patient and my medical decision-making was reviewed with the Resident Physician dr Fernandez 07/08/18. I agree with the documented findings, disposition and treatment plan as described except to the extent set forth below. Hospitalist consult for chronic medical conditions and shortness of breath Ms Patel is here with perforated gastric ulcer. Today she developed shortness of breath and increased work of breathng. She has been maintained on O2 NC 2L this admission. CT chest shows moderate bl pleural effusions. She is s/p IV lasix by primary team. She has addl had intermittent fevers this admission. awake, family present. comfortable on 2L nc. Prior to admit had cough and congestion that had improved. Still had some cough on admit with clear sputum. no colored sputum, denies wheezing, + orthopnea, no cp, pressure, palpitations, le edema. Pain is well controlled. No chf hx. No le unequal calf sizes, calf pain. gen- alert, awake,appears stated age eyes- pupils equal round, no conjunctival pallor cv- tachy rate and regular rhythm, normal s1,s2, no murmurs appreciated, no jvd, no le edema lungs- greatly diminished bl bases, scattered exp wheezing, normal resp effort on 2L NC sitting upright neuro- AAOx3, CN grossly intac Shortness of Breath/Hypoxia 2/2 Moderat BL pleural effusions -agree with beginning with IV lasix, would monitor outpt overnight, may require increased dose, and will have to monitor electrolytes and creat to ensure she tolerates; if fails to improve may benefit this admission from thoacentesis -it would not be unreasonable to check echo to assess for chf as she has never had one, will defer to primary team -CT does not show pna, but given effusions, just may not be evident, her sxs at this time are more consistent with fluid overload, however if you cannot id a source of infection for fever and/or she develops productive cough with colored sputum- would rec tx for pna at that time and we would be happy to assist with abx choices and further work up to identify organism -incentive spirometry -to optimize resp status would discuss phos repletion in tpn with nutrition -agree with nebs, I have taken the liberty of changing to standing xopenex nebs given her tachycardia and dc duonebs -will cont to follow DM- bs at goal, and would cont SSI and hold home metformin HTN with variable BPs- IV prn lopressor as npo Hx Anxiety on xanax 0.5 mg BID prn- given her resp status agree with holding benzo a this time, if at any time she appears to be withdrawing from benzos or having uncontrolled anxiety- low dose 0.5mg IV ativan would be acceptable Incidental CT a/p finding mild bl hydronephrosis- caldera cath in place and monitoring output, UA unremarkable, creat wnl further diagnoses and treatment as doucmented by resident. <Gus Fernandez - Last Filed: 07/09/18 05:23> Date of Encounter: 07/09/18 Time of Encounter: 17:00 - Assessment and plan (1) Perforated gastric ulcer Current Visit: Yes Status: Acute Assessment and plan: History of chronic NSAID use, co-ingestion of meloxicam with other NSAIDs for her OA Management continues to be per Primary Surgery Team She is NPO, on LIWS, TPN; she is on Cefazolin antibiotic Possible EGD over Sat/Sun Qualifiers: Gastric ulcer chronicity: acute Qualified Code(s): K25.1 - Acute gastric ulcer with perforation (2) Pleural effusion Current Visit: Yes Status: Acute Assessment and plan: As demonstrated by CT Chest showing pleural effusion and bibasial atelectasis -Agree with continued diuresis, O2 titration, strict I/Os -Phosphorus electrolyte repletion and diaphragmatic function -Possible fluid overload by clinical picture, though has fevered in setting of reported URI like symptoms in preceding days, has pneumoperitoneum/ulcer, no wt ct elev, if patient's resp status clinically worsens despite diuresis, may consider treating for PNA, happy to assist with antibiotic selection and further ID workup (3) Anxiety disorder Current Visit: Yes Status: Acute Assessment and plan: chronic condition, pleasant, holding po benzo, if signs of withdrawal due to her use of home med rx, can trial 0.5mg ativan ivp Qualifiers: Anxiety disorder type: panic disorder without agoraphobia Qualified Code(s): F41.0 - Panic disorder [episodic paroxysmal anxiety] (4) Osteoarthritis Current Visit: Yes Status: Acute Assessment and plan: long NSAID use history, presenting with gastric ulceration/perforation currently on pain management, narcotics per primary Qualifiers: Osteoarthritis location: unspecified site Osteoarthritis type: primary Qualified Code(s): M19.91 - Primary osteoarthritis, unspecified site (5) Hypertension Current Visit: Yes Status: Acute Assessment and plan: NPO currently IV Lopressor prn Qualifiers: Hypertension type: essential hypertension Qualified Code(s): I10 - Essential (primary) hypertension (6) Diabetes Current Visit: Yes Status: Acute Assessment and plan: Hold hold meds NPO, on TPN SSI Qualifiers: Diabetes mellitus type: type 2 Diabetes mellitus intermediate teacher insulin use: without intermediate teacher use Diabetes mellitus complication status: with unspecified complications Qualified Code(s): E11.8 - Type 2 diabetes mellitus with unspecified complications (7) DVT prophylaxis Current Visit: Yes Status: Acute Assessment and plan: SQ Heparin q12h - Time Spent With Patient Total time spent is greater than 50% in coordination of care (as documented) at patient's floor/unit and/or counseling patient: Internal Medicine - CN: HPI - Data of Consult Requesting Physician: Bill Pineda DO - Consult Narrative Reason for consult: chronic condition management and shortness of breath History of present illness: Ms. Patel is a 67 year old female with past medical history of anxiety on chronic benzodiazepine, hypertension, diabetes type 2, GERD, osteoarthritis with recurrent meloxicam and other NSAID use, several orthostatic surgeries, who presented to the emergency department on 07/06 for 7 days of worsening upper abdominal pain. Initial review of systems includes nonbilious nonbloody nausea and vomiting, having denied fever, melena, chest pain, constipation. CT of the abdomen and pelvis showed free air with mural thickening of the gastric antrum. Patient was admitted to general surgery. She was treated conservatively by being placed nothing by mouth, NG with low intermittent wall suction, IV fluids, TPN, cefazolin antibiotic. On 07/08 surgery team noted worsening respiratory status of patient. Patient's fluid was stopped, Lasix was given, respiratory therapy with pulmonary toilet given. CT of the chest was performed showing bibasilar atelectasis with pleural effusions. Medicine team was then consult for chronic medical condition management as well as her shortness of breath. Past Med Surg Social Fam HX - Past Medical History Medical history: arthritis, diabetes, GERD, hypertension Psychiatric history: panic disorder - Past Surgical History Surgical History: , orthopedic, other - Social History Smoking Status: Never smoker Smokeless Tobacco Status: No Alcohol use: none Drug use: none All systems: reviewed and no additional remarkable complaints except as stated Hospitalist - CN: Exam - Constitutional Vitals: Temp Pulse Resp BP Pulse Ox 99.6 F 117 20 143/88 94 07/08/18 17:11 07/08/18 17:11 07/08/18 17:11 07/08/18 17:11 07/08/18 17:11 General appearance IM: Present: A&O X 3 Exam: . - Head Head exam: Present: atraumatic - Expanded Head Exam Head exam expanded IM: Absent: laceration - Eye Eye exam: Present: EOMI, normal appearance. Absent: periorbital swelling, scleral icterus - ENT ENT exam: Present: mucous membranes moist - Respiratory Respiratory exam: Present: decreased breath sounds. Absent: accessory muscle use, chest wall tenderness, rhonchi, stridor, wheezes, tachypnea - Expanded Respiratory Exam Location: decreased breath sounds: Lower, Right, Left - Cardiovascular Cardiovascular exam IM: Present: RRR, +S1, +S2. Absent: clicks, rubs, systolic murmur - GI/Abdominal GI/Abdominal exam IM: Present: soft, no peritoneal signs. Absent: firm, guarding - Rectal Rectal exam: Present: deferred - Back Exam Back exam: Present: full ROM - Neurological Exam Neurological exam: Present: alert, normal gait (transfers with some hesitation from wheelchair to bed, hx hip sx), oriented X3, no focal deficits. Absent: altered, facial droop, speech deficit - Psychiatric Psychiatric exam: Present: normal mood. Absent: agitated, anxious - Skin Skin exam IM: Absent: abrasion, cyanosis Internal Medicine - CN: Reslt - Labs CBC & Chem 7: 07/09/18 04:20 07/08/18 06:25 Labs: Short CBC 07/08/18 Range/Units 06:25 WBC 10.9 (4.3-11.1) K/mcL Hgb 10.6 L (11.5-15.4) g/dL Hct 34.1 L (35.3-44.9) % Plt Count 190 (140-400) K/mcL Neutrophils # 8.9 (1.6-8.9) K/mcL BMP 07/08/18 06:25 Sodium 139 Potassium 4.1 Chloride 109 H Carbon Dioxide 25 BUN 20 Creatinine 0.75 Glucose 140 H Calcium 9.0 - Impressions Impressions Chest X-Ray 07/06/18 08:37 IMPRESSION: Worsening appearance of left basilar consolidation compared to prior of 07/06/2018. D/ / Jaison Guevara / Jaison Guevara Interpreting Provider: Jaison Guevara Chest X-Ray 07/08/18 13:15 IMPRESSION: 1. Right-sided PICC terminates in the SVC. 2. Bibasilar airspace disease could represent atelectasis or pneumonia. D/ / 07/08/2018 14:20:56 Lonny Chaudhari MD / Misty Aguero Interpreting Provider: Lonny Chaudhari MD Chest CT 07/08/18 15:15 IMPRESSION: 1. There are inflammatory changes surrounding the stomach as well as pneumoperitoneum and ascites, most pronounced along the left lobe of the liver. This is compatible with the history of a gastric perforation. 2. Mild bilateral hydronephrosis. 3. Complicated enlarged uterine fibroid measuring 10.6 x 10.4 cm. Pelvic MRI with IV contrast may be of benefit for further evaluation. 4. Larger bilateral pleural effusions, moderate in size, with increased atelectasis in the lung bases. 5. Atherosclerotic disease. D/ / 07/08/2018 17:01:31 Cullen Mata MD / ole Interpreting Provider: Cullen Mata MD Abdomen/Pelvis CT 07/08/18 15:16
--- NOTE | 2018-07-08 18:06 | Event Note ---
Date of Encounter: 07/08/18 Time of Encounter: 17:00 Full consult note to follow case discussed with resident Dr Fernandez. To serve as attestation awaiting completion of full documentation. I examined this patient and my medical decision-making was reviewed with the Resident Physician dr Fernandez 07/08/18. I agree with the documented findings, disposition and treatment plan as described except to the extent set forth below. Hospitalist consult for chronic medical conditions and shortness of breath Ms Patel is here with perforated gastric ulcer. Today she developed shortness of breath and increased work of breathng. She has been maintained on O2 NC 2L this admission. CT chest shows moderate bl pleural effusions. She is s/p IV lasix by primary team. She has addl had intermittent fevers this admission. awake, family present. comfortable on 2L nc. Prior to admit had cough and congestion that had improved. Still had some cough on admit with clear sputum. no colored sputum, denies wheezing, + orthopnea, no cp, pressure, palpitations, le edema. Pain is well controlled. No chf hx. No le unequal calf sizes, calf pain. gen- alert, awake,appears stated age eyes- pupils equal round, no conjunctival pallor cv- tachy rate and regular rhythm, normal s1,s2, no murmurs appreciated, no jvd, no le edema lungs- greatly diminished bl bases, scattered exp wheezing, normal resp effort on 2L NC sitting upright neuro- AAOx3, CN grossly intac Shortness of Breath/Hypoxia 2/2 Moderat BL pleural effusions -agree with beginning with IV lasix, would monitor outpt overnight, may require increased dose, and will have to monitor electrolytes and creat to ensure she tolerates; if fails to improve may benefit this admission from thoacentesis -it would not be unreasonable to check echo to assess for chf as she has never had one, will defer to primary team -CT does not show pna, but given effusions, just may not be evident, her sxs at this time are more consistent with fluid overload, however if you cannot id a source of infection for fever and/or she develops productive cough with colored sputum- would rec tx for pna at that time and we would be happy to assist with abx choices and further work up to identify organism -incentive spirometry -to optimize resp status would discuss phos repletion in tpn with nutrition -agree with nebs, I have taken the liberty of changing to standing xopenex nebs given her tachycardia and dc duonebs -will cont to follow DM- bs at goal, and would cont SSI and hold home metformin HTN with variable BPs- IV prn lopressor as npo Hx Anxiety on xanax 0.5 mg BID prn- given her resp status agree with holding benzo a this time, if at any time she appears to be withdrawing from benzos or having uncontrolled anxiety- low dose 0.5mg IV ativan would be acceptable Incidental CT a/p finding mild bl hydronephrosis- caldera cath in place and monitoring output, UA unremarkable, creat wnl further diagnoses and treatment as doucmented by resident.
[2018-07-08 19:26] LABS: INR 1.2; Prothrombin Time 13.2 Seconds (9.4-12.1)
[2018-07-08] MEDS: *HR* Promethazine 25 MG/ML VIAL IVP PRN (20:46)
[2018-07-08] MEDS: Levalbuterol Neb 0.63 MG/3 ML IH SCH (23:03)
[2018-07-09] MEDS: Insulin LISPRO 300 UNITS/3 ML VIAL SQ SCH ×4 (02:43→17:47)
[2018-07-09] MEDS: Acetaminophen IV 1,000 MG/100 ML INFUS..BTL IVPB SCH ×4 (04:11→20:15)
[2018-07-09] MEDS: Levalbuterol Neb 0.63 MG/3 ML IH SCH ×4 (04:41→21:12)
[2018-07-09 05:13] LABS: Basophils % 0.3 %; Eosinophils # 0.8 K/mcL (0.0-0.6); Eosinophils % 7.8 %; Hematocrit 33.3 % (35.3-44.9); Hemoglobin 10.5 g/dL (11.5-15.4); Immature Granulocytes % 0.5 % (0-4); Lymphocytes # 1.1 K/mcL (0.6-4.6); Mean Corpuscular HGB Conc 31.5 g/dL (31.6-35.5); Mean Corpuscular Hemoglobin 27.9 pg (28.0-33.3); Mean Corpuscular Volume 88.3 fL (83.0-100.0); Monocytes # 0.7 K/mcL (0.0-1.3); Monocytes % 7.1 %; Neutrophils # 7.2 K/mcL (1.6-8.9); Platelet Count 202 K/mcL (140-400); Red Blood Count 3.77 M/mcL (3.82-4.97); Red Cell Distribution Width 14.5 % (11.5-14.5); Segmented Neutrophils % 73.3 %
[2018-07-09 05:31] LABS: BUN/Creatinine Ratio 30 (6-26); Blood Urea Nitrogen 18 mg/dL (8-23); Calcium 8.8 mg/dL (8.6-10.3); Carbon Dioxide 28 mEq/L (23-29); Chloride 105 mEq/L (98-107); Glucose 178 mg/dL (70-105); Magnesium 1.7 mg/dL (1.6-2.6); Osmolality,Calculated 292 (280-300); Phosphorous 1.5 mg/dL (2.7-4.5); Potassium 3.4 mEq/L (3.5-5.1); Sodium 138 mEq/L (136-145); eGFR For Non-African Americans > 60 (> 60)
[2018-07-09] MEDS: *HR* Heparin 5,000 UNIT/ML VIAL SQ SCH ×2 (06:40→16:42)
[2018-07-09] MEDS ORDERED: Potassium Phosphate 44 MEQ in 0.9 % Sodium Chloride 250 ML IVPB ONE (08:08)
[2018-07-09] MEDS: Furosemide 40 MG/4 ML VIAL IVP SCH (09:18)
[2018-07-09] MEDS: Pantoprazole 40 MG VIAL IVP SCH ×2 (09:19→20:15)
--- NOTE | 2018-07-09 10:58 | Internal Med Progress Note ---
<Ayde Catalan - Last Filed: 07/09/18 13:14> Hospitalist Progress Note - Encounter Date of Encounter: 07/09/18 - Exam Vitals: Temp Pulse Resp BP Pulse Ox 98.9 F 89 16 159/79 88 07/09/18 10:00 07/09/18 10:00 07/09/18 10:58 07/09/18 10:00 07/09/18 10:58 - Time Spent with Patient Total time spent is greater than 50% in coordination of care (as documented) at patient's floor/unit and/or counseling patient: Internal Medicine: Result - Labs CBC & Chem 7: 07/09/18 04:20 07/09/18 04:20 Labs: Short CBC 07/09/18 Range/Units 04:20 WBC 9.8 (4.3-11.1) K/mcL Hgb 10.5 L (11.5-15.4) g/dL Hct 33.3 L (35.3-44.9) % Plt Count 202 (140-400) K/mcL Neutrophils # 7.2 (1.6-8.9) K/mcL BMP 07/09/18 04:20 Sodium 138 Potassium 3.4 L Chloride 105 Carbon Dioxide 28 BUN 18 Creatinine 0.60 Glucose 178 H Calcium 8.8 - ABG Interpretation ABG results: PT/INR, D-dimer PT 13.2 Seconds (9.4-12.1) H 07/08/18 19:03 - Impressions Impressions Chest X-Ray 07/06/18 08:37 IMPRESSION: Worsening appearance of left basilar consolidation compared to prior of 07/06/2018. D/ / Jaison Guevara / Jaison Guevara Interpreting Provider: Jaison Guevara Chest X-Ray 07/08/18 13:15 IMPRESSION: 1. Right-sided PICC terminates in the SVC. 2. Bibasilar airspace disease could represent atelectasis or pneumonia. D/ / 07/08/2018 14:20:56 Lonny Chaudhari MD / Misty Aguero Interpreting Provider: Lonny Chaudhari MD Chest CT 07/08/18 15:15 IMPRESSION: 1. There are inflammatory changes surrounding the stomach as well as pneumoperitoneum and ascites, most pronounced along the left lobe of the liver. This is compatible with the history of a gastric perforation. 2. Mild bilateral hydronephrosis. 3. Complicated enlarged uterine fibroid measuring 10.6 x 10.4 cm. Pelvic MRI with IV contrast may be of benefit for further evaluation. 4. Larger bilateral pleural effusions, moderate in size, with increased atelectasis in the lung bases. 5. Atherosclerotic disease. D/ / 07/08/2018 17:01:31 Cullen Mata MD / ole Interpreting Provider: Cullen Mata MD Abdomen/Pelvis CT 07/08/18 15:16 IMPRESSION: 1. There are inflammatory changes surrounding the stomach as well as pneumoperitoneum and ascites, most pronounced along the left lobe of the liver. This is compatible with the history of a gastric perforation. 2. Mild bilateral hydronephrosis. 3. Complicated enlarged uterine fibroid measuring 10.6 x 10.4 cm. Pelvic MRI with IV contrast may be of benefit for further evaluation. 4. Larger bilateral pleural effusions, moderate in size, with increased atelectasis in the lung bases. 5. Atherosclerotic disease. D/ / 07/08/2018 17:01:31 Cullen Mata MD / ole Interpreting Provider: Cullen Mata MD Consult Discharge Plan - Plan Referrals: Ruba Perkins MD [Primary Care Provider] - 07/18/18 1:30 pm (Please follow up with Dr. Rey) - Attending Attestation I examined this patient and my medical decision-making was reviewed with the Resident Physician dr leyva. I agree with the documented findings, disposition and treatment plan as described except to the extent set forth below. Hospitalist consult for chronic medical conditions and shortness of breath Ms Means is here with perforated gastric ulcer. she developed shortness of breath and increased work of breathng.with moderate bl pleural effusions. . awake, sitting in chair. feeling well. no sob on room air. denies wheezing, orthopnea. + cough with clear sputum. Denies le edema, fevers, chills, palpitations, cp. Tmax 100.4 and HR is significantly improved since yesterday and now low 100s gen- alert, awake,appears stated age eyes- pupils equal round, no conjunctival pallor cv- tachy rate and regular rhythm, normal s1,s2, no murmurs appreciated, no jvd, no le edema lungs- improved aeration bl bases, no wheezing, rhonchi or crackles,, normal resp effort on room air neuro- AAOx3, CN grossly intact Shortness of Breath/Hypoxia 2/2 Moderat BL pleural effusions, improved -IV lasix dose today, re eval in morning and if clinical improvement may be able to decrease dosing,this morning wasnet neg 2.5 L if clinical picture worsens obtain repeat cxr to re eval effusions -incentive spirometry -cont xopenex nebs prn -she is not demonstrating symptoms of pa at this time Perforated GAstric Ulcer- management as per primary team, TPN Hypophosphatemia - IV repletion ordered Sinus tachycardia - improved today- avoid albuterol nebs, we will replete magnesium IV and K+ to goal of 4 , she takes BB at home and when can take PO wou ld resume, fever monitoring DM- bs at goal, and would cont SSI and hold home metformin HTN with variable BPs- IV prn lopressor while npo and may resume home meds when able to take po Hx Anxiety on xanax 0.5 mg BID prn- if at any time she appears to be withdrawing from benzos or having uncontrolled anxiety- low dose 0.5mg IV ativan would be acceptable Incidental CT a/p finding mild bl hydronephrosis- caldera cath in place and monitoring output, UA unremarkable, creat wnl further diagnoses and treatment as documented by resident. <Graciela Leyva - Last Filed: 07/09/18 14:43> Hospitalist Progress Note - Encounter Date of Encounter: 07/09/18 Time of Encounter: 10:57 - Subjective Interval History: Patient seen and examined, she is alert and oriented times 3 and no acute distress. She is sitting up in her chair watching television. She reports significant improvement in abdominal pain and is no longer having pain today. She continues to have NG tube in place. She denies fever, chills, nausea, chest pain, shortness of breath. She admits to sputum production. She is no other complaints. - Exam Vitals: Temp Pulse Resp BP Pulse Ox 98.9 F 89 18 159/79 92 07/09/18 10:00 07/09/18 10:00 07/09/18 10:00 07/09/18 10:00 07/09/18 10:00 Exam: Gen.: Vitals noted. No acute distress. AAOx3 HEENT: oropharynx clear, Normocephalic, atraumatic, NG tube in place Cardiac: RRR, no murmur, +S1/S2, non-pitting lower extremity edema Pulmonary: CTA bilaterally, no wheezes, rales or rhonchi, equal chest expansion Abdomen: soft, nontender, Bowel sounds noted, no guarding MSK: ROM intact, no joint swelling noted Extremities: nontender calf, no cyanosis or clubbing Neuro: A&Ox3, moves all extremities, no focal deficits Psych: Appropriate mood and behavior . - Assessment and Plan (1) Perforated gastric ulcer Current Visit: Yes Status: Acute Assessment and Plan: Secondary to chronic NSAID use, patient admitted to taking meloxicam for her osteoarthritis. Abdominal CT demonstrating perforated gastric ulcer. Also noted a large uterine mass. -Management continues to be per primary surgical team. Likely to have EGD on Wednesday. -She is currently on cefazolin -patient is on Protonix, carafate, Phenergan -she is currently NPO but on TPN -NG tube is in place -per medical records patient is aware of uterine mass and follows with Dr. Baeza of [facility]. (2) Pleural effusion Current Visit: Yes Status: Acute Assessment and Plan: Chest CT demonstrates pleural effusion and bibasilar atelectasis patient denies shortness of breath. She does report clear sputum production. Documented fever of 100.4, WBC WNL Phosphorus and potassium low Lung examination demonstrated no wheezing or rhonchi. Lungs were clear to auscultation bilaterally with minimal rales at bases. -Pleural effusion is likely secondary to IV fluids that were given. Patient has no white blood cell count however she did have a documented fever of 100.4 last night. If patient's respiratory status clinically worsens may consider treating for pneumonia. -Agree with continue diuresis, supplemental oxygen, encouraged incentive spirometry -monitor I&O, good urine output -continue with phosphorus and other electrolyte supplementation as needed (3) Anxiety disorder Current Visit: Yes Status: Acute Assessment and Plan: History of known anxiety taking Xanax at home. -Patient is currently on Ativan IV due to NPO status and to keep patient from benzodiazepine withdrawal (4) Hypertension Current Visit: Yes Status: Acute Assessment and Plan: History of hypertension. Pressure controlled -currently on Lopressor PRN -holding home antihypertensive medication due to NPO status (5) Diabetes Current Visit: Yes Status: Acute Assessment and Plan: History of chronic diabetes taking metformin. Glucose controlled -Patient on low dose sliding scale insulin q6h -on TPN, NPO (6) Osteoarthritis Current Visit: Yes Status: Acute Assessment and Plan: Chronic osteoarthritis with long history of taking NSAIDs. She reports taking meloxicam. -Currently on pain management with oxycodone per primary team (7) DVT prophylaxis Current Visit: Yes Status: Acute Assessment and Plan: Heparin SQ - Time Spent with Patient Total time spent is greater than 50% in coordination of care (as documented) at patient's floor/unit and/or counseling patient: Internal Medicine: Result - Labs CBC & Chem 7: 07/09/18 04:20 07/09/18 04:20 Labs: Short CBC 07/09/18 Range/Units 04:20 WBC 9.8 (4.3-11.1) K/mcL Hgb 10.5 L (11.5-15.4) g/dL Hct 33.3 L (35.3-44.9) % Plt Count 202 (140-400) K/mcL Neutrophils # 7.2 (1.6-8.9) K/mcL BMP 07/09/18 04:20 Sodium 138 Potassium 3.4 L Chloride 105 Carbon Dioxide 28 BUN 18 Creatinine 0.60 Glucose 178 H Calcium 8.8 - ABG Interpretation ABG results: PT/INR, D-dimer PT 13.2 Seconds (9.4-12.1) H 07/08/18 19:03 - Impressions Impressions Chest X-Ray 07/06/18 08:37 IMPRESSION: Worsening appearance of left basilar consolidation compared to prior of 07/06/2018. D/ / Jaison Guevara / Jaison Guevara Interpreting Provider: Jaison Guevara Chest X-Ray 07/08/18 13:15 IMPRESSION: 1. Right-sided PICC terminates in the SVC. 2. Bibasilar airspace disease could represent atelectasis or pneumonia. D/ / 07/08/2018 14:20:56 Lonny Chaudhari MD / Misty Aguero Interpreting Provider: Lonny Chaudhari MD Chest CT 07/08/18 15:15 IMPRESSION: 1. There are inflammatory changes surrounding the stomach as well as pneumoperitoneum and ascites, most pronounced along the left lobe of the liver. This is compatible with the history of a gastric perforation. 2. Mild bilateral hydronephrosis. 3. Complicated enlarged uterine fibroid measuring 10.6 x 10.4 cm. Pelvic MRI with IV contrast may be of benefit for further evaluation. 4. Larger bilateral pleural effusions, moderate in size, with increased atelectasis in the lung bases. 5. Atherosclerotic disease. D/ / 07/08/2018 17:01:31 Cullen Mata MD / ole Interpreting Provider: Cullen Mata MD Abdomen/Pelvis CT 07/08/18 15:16 IMPRESSION: 1. There are inflammatory changes surrounding the stomach as well as pneumoperitoneum and ascites, most pronounced along the left lobe of the liver. This is compatible with the history of a gastric perforation. 2. Mild bilateral hydronephrosis. 3. Complicated enlarged uterine fibroid measuring 10.6 x 10.4 cm. Pelvic MRI with IV contrast may be of benefit for further evaluation. 4. Larger bilateral pleural effusions, moderate in size, with increased atelectasis in the lung bases. 5. Atherosclerotic disease. D/ / 07/08/2018 17:01:31 Cullen Mata MD / ole Interpreting Provider: Cullen Mata MD <Graciela Leyva - Last Filed: 07/09/18 14:43> (1) Perforated gastric ulcer Qualifiers: Gastric ulcer chronicity: acute Qualified Code(s): K25.1 - Acute gastric ulcer with perforation (3) Anxiety disorder Qualifiers: Anxiety disorder type: panic disorder without agoraphobia Qualified Code(s): F41.0 - Panic disorder [episodic paroxysmal anxiety] (4) Hypertension Qualifiers: Hypertension type: essential hypertension Qualified Code(s): I10 - Essential (primary) hypertension (5) Diabetes Qualifiers: Diabetes mellitus type: type 2 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
--- NOTE | 2018-07-09 12:57 | General Surgery Progress Note ---
Date of Encounter: 07/09/18 Time of Encounter: 12:56 - Assessment and Plan (1) Intra-abdominal free air of unknown etiology Current Visit: Yes Status: Acute CT scan performed yesterday showed signs of inflammation on stomach and small amounts of air consistent with the patient's history of a perforation likely gastric in origin. Continue with NG tube and we will place it to gravity. Will allow ice chips. Continue with IV antibiotics and Protonix. We will likely keep NG tube in place over the next 24-48 hours and consider performing an upper GI on Wednesday. Subjective Patient reports: other (Patient denies any current abdominal pain. No nausea or vomiting. NG tube in place.) Objective Vital Signs - Last 8 Hours Temp Pulse Resp BP Pulse Ox 07/09/18 10:58 16 88 07/09/18 10:00 98.9 F 89 18 159/79 92 07/09/18 07:02 100.4 F H 105 20 153/77 91 Intake and Output 07/08/18 07/09/18 07/09/18 23:59 07:59 15:59 Intake Total 300 / 300 200 / 200 200 / 200 Output Total 1150 / 1150 860 / 860 1360 / 1360 Balance -850 / -850 -660 / -660 -1160 / -1160 Intake: IV Fluids 300 / 300 200 / 200 200 / 200 Ofirmev 1,000 mg/100 ml 1,000 200 / 200 100 / 100 100 / 100 mg In 100 ml @ 400 mls/hr IVPB Q6H [facility] Rx#:[id number] Ancef 2,000 MG In 0.9 % Sodium 100 / 100 100 / 100 100 / 100 Chloride 100 ML @ 200 mls/hr IVPB Q8HR [facility] Rx#:[id number] Oral 0 / 0 0 / 0 Output: Urine 0 / 0 0 / 0 Gastric Tube Lavage Amount 0 / 0 Right Nare 0 / 0 Catheter 1000 / 1000 760 / 760 1260 / 1260 Urethral (Jernigan) 0 / 0 0 / 0 100 / 100 Gastric Drainage 150 / 150 100 / 100 100 / 100 Other: Meal NPO Percent of Meal Consumed 0% # Bowel Movements 0 0 Weight 100.2 kg Blood Glucose* 149 166 143 Patient Weight 07/09/18 23:59 Weight 100.2 kg - General physical appearance well nourished, no distress - Respiratory normal expansion, normal respiratory effort - Abdomen Abdomen: Present: bowel sounds present, soft, non tender - Labs 07/09/18 04:20 07/09/18 04:20 Diabetes panel 07/09/18 Range/Units 04:20 Sodium 138 (136-145) mEq/L Potassium 3.4 L (3.5-5.1) mEq/L Chloride 105 (98-107) mEq/L Carbon Dioxide 28 (23-29) mEq/L BUN 18 (8-23) mg/dL Creatinine 0.60 (0.60-1.20) mg/dL Glucose 178 H (70-105) mg/dL Calcium 8.8 (8.6-10.3) mg/dL Calcium panel 07/09/18 Range/Units 04:20 Calcium 8.8 (8.6-10.3) mg/dL Phosphorus 1.5 L (2.7-4.5) mg/dL Pituitary panel 07/09/18 Range/Units 04:20 Sodium 138 (136-145) mEq/L Potassium 3.4 L (3.5-5.1) mEq/L Chloride 105 (98-107) mEq/L Carbon Dioxide 28 (23-29) mEq/L BUN 18 (8-23) mg/dL Creatinine 0.60 (0.60-1.20) mg/dL Glucose 178 H (70-105) mg/dL Calcium 8.8 (8.6-10.3) mg/dL Adrenal panel 07/09/18 Range/Units 04:20 Sodium 138 (136-145) mEq/L Potassium 3.4 L (3.5-5.1) mEq/L Chloride 105 (98-107) mEq/L Carbon Dioxide 28 (23-29) mEq/L BUN 18 (8-23) mg/dL Creatinine 0.60 (0.60-1.20) mg/dL Glucose 178 H (70-105) mg/dL Calcium 8.8 (8.6-10.3) mg/dL Consult Discharge Plan - Plan Referrals: Ruba Perkins MD [Primary Care Provider] - 07/18/18 1:30 pm (Please follow up with Dr. Rey)
[2018-07-09] MEDS: *HR* LORazepam 2 MG/ML VIAL IVP PRN (13:38)
[2018-07-09] MEDS ORDERED: Clinimix E 5%-15% SOLUTION 2,000 ML with MVI, adult with vitamin K 10 ML IVC SCH ×2 (17:00)
[2018-07-09] MEDS: *HR* Metoprolol 5 MG/5 ML VIAL IVP PRN (18:42)
[2018-07-10] MEDS: Insulin LISPRO 300 UNITS/3 ML VIAL SQ SCH ×4 (01:32→16:49)
[2018-07-10] MEDS: Levalbuterol Neb 0.63 MG/3 ML IH SCH ×4 (03:54→21:54)
[2018-07-10 06:39] LABS: Basophils % 0.4 %; Eosinophils # 0.6 K/mcL (0.0-0.6); Eosinophils % 7.5 %; Hematocrit 33.1 % (35.3-44.9); Hemoglobin 10.4 g/dL (11.5-15.4); Immature Granulocytes % 0.5 % (0-4); Lymphocytes # 1.1 K/mcL (0.6-4.6); Lymphocytes % 13.9 %; Mean Corpuscular HGB Conc 31.4 g/dL (31.6-35.5); Mean Corpuscular Hemoglobin 27.7 pg (28.0-33.3); Mean Platelet Volume 8.6 fL (9.4-12.4); Monocytes # 0.7 K/mcL (0.0-1.3); Monocytes % 9.1 %; Neutrophils # 5.4 K/mcL (1.6-8.9); Platelet Count 230 K/mcL (140-400); Red Blood Count 3.76 M/mcL (3.82-4.97); Red Cell Distribution Width 14.5 % (11.5-14.5); Segmented Neutrophils % 68.6 %
[2018-07-10 07:03] LABS: BUN/Creatinine Ratio 32 (6-26); Blood Urea Nitrogen 19 mg/dL (8-23); Calcium 8.7 mg/dL (8.6-10.3); Carbon Dioxide 28 mEq/L (23-29); Chloride 104 mEq/L (98-107); Glucose 193 mg/dL (70-105); Magnesium 1.9 mg/dL (1.6-2.6); Osmolality,Calculated 294 (280-300); Phosphorous 2.6 mg/dL (2.7-4.5); Potassium 3.4 mEq/L (3.5-5.1); Sodium 138 mEq/L (136-145); eGFR For Non-African Americans > 60 (> 60)
[2018-07-10] MEDS: Acetaminophen IV 1,000 MG/100 ML INFUS..BTL IVPB SCH ×4 (07:10→22:02)
[2018-07-10] MEDS: *HR* Heparin 5,000 UNIT/ML VIAL SQ SCH ×2 (07:11→16:49)
[2018-07-10] MEDS: Pantoprazole 40 MG VIAL IVP SCH ×2 (08:16→22:02)
[2018-07-10] MEDS: Furosemide 40 MG/4 ML VIAL IVP SCH (08:16)
--- NOTE | 2018-07-10 08:57 | Internal Med Progress Note ---
Hospitalist Progress Note - Encounter Date of Encounter: 07/10/18 Time of Encounter: 09:30 - Subjective Interval History: awake, no sob, cough or wheezing. o2 nc in place at 2 L, taken off and o2 sats 92% room air and pt denies symptoms. denies cp, palpitations. Is having bp elevations that at time are causing headache. agreeable to standing IV bp med. n o vision changes. - Exam Vitals: Temp Pulse Resp BP Pulse Ox 99.4 F 97 28 168/89 94 07/10/18 06:50 07/10/18 08:42 07/10/18 06:50 07/10/18 06:50 07/10/18 06:50 Exam: Gen.: awake, alert, appears stated age HEENT: pupils equal round, NG tube in place Cardiac: RRR, no murmur, +S1/S2, non-pitting lower extremity edema Pulmonary: CTA bilaterally, no wheezes, rales or rhonchi, equal chest expansion, normal resp effort Abdomen: soft, nontender, Bowel sounds noted, no guarding Neuro: A&Ox3 . - Assessment and Plan (1) Perforated gastric ulcer Current Visit: Yes Status: Acute Assessment and Plan: Secondary to chronic NSAID use, patient admitted to taking meloxicam for her osteoarthritis. Abdominal CT demonstrating perforated gastric ulcer. Also noted a large uterine mass. -Management continues to be per primary surgical team. -She is currently on cefazolin -patient is on Protonix, carafate, Phenergan -ice chips + TPN -NG tube is in place -incidental imaging finding:per medical records patient is aware of uterine mass and follows with Dr. Baeza of [facility]. (2) Anxiety disorder Current Visit: Yes Status: Acute Assessment and Plan: History of known anxiety taking Xanax at home. -Patient is currently on Ativan IV prn due to NPO status -no s/s of benzodiazepine withdrawal (3) Osteoarthritis Current Visit: Yes Status: Acute Assessment and Plan: Chronic osteoarthritis with long history of taking NSAIDs. She reports taking meloxicam. -Currently on pain management with oxycodone per primary team (4) Hypertension Current Visit: Yes Status: Acute Assessment and Plan: History of hypertension. takes losartan/hctz and atenolol at home -currently on Lopressor PRN as npo -will add standing IV lopressor + prn lopressor and cont to monitor -home meds when cleared by primary team for po (5) Diabetes Current Visit: Yes Status: Acute Assessment and Plan: History of chronic diabetes taking metformin. Glucose controlled, goal bs <180 -Patient on low dose sliding scale insulin q6h -on TPN (6) Pleural effusion Current Visit: Yes Status: Acute Assessment and Plan: Chest CT demonstrates pleural effusion and bibasilar atelectasis patient denies shortness of breath. She does report clear sputum production. Lung examination now clear -Pleural effusion is likely secondary to IV fluids that were given. Patient has no white blood cell count, no afebrile for 24hrs -if patient's respiratory status clinically worsens would repeat CXR to reassess for pna -Agree with continue diuresis, supplemental oxygen and wean to spo2 92% or greter and asx - encouraged incentive spirometry (7) DVT prophylaxis Current Visit: Yes Status: Acute Assessment and Plan: Heparin SQ (8) Tachycardia Current Visit: Yes Status: Acute Assessment and Plan: sinus tachycardia -will replete K+ IV today, mag repleted yesterday -is on standing BB at home, IV lopressor as noted above and cont to monitor -cont pain control (9) Hypophosphatemia Current Visit: Yes Status: Acute Assessment and Plan: replete IV again today TPN - Time Spent with Patient Total time spent is greater than 50% in coordination of care (as documented) at patient's floor/unit and/or counseling patient: 25 - 35 minutes Plan of Care Discussed with: patient Internal Medicine: Result - Labs CBC & Chem 7: 07/10/18 06:30 07/10/18 06:30 Labs: Short CBC 07/10/18 Range/Units 06:30 WBC 7.9 (4.3-11.1) K/mcL Hgb 10.4 L (11.5-15.4) g/dL Hct 33.1 L (35.3-44.9) % Plt Count 230 (140-400) K/mcL Neutrophils # 5.4 (1.6-8.9) K/mcL BMP 07/10/18 06:30 Sodium 138 Potassium 3.4 L Chloride 104 Carbon Dioxide 28 BUN 19 Creatinine 0.59 L Glucose 193 H Calcium 8.7 - ABG Interpretation ABG results: PT/INR, D-dimer PT 13.2 Seconds (9.4-12.1) H 07/08/18 19:03 Consult Discharge Plan - Plan Referrals: Ruba Perkins MD [Primary Care Provider] - 07/18/18 1:30 pm (Please follow up with Dr. Rey) (1) Perforated gastric ulcer Qualifiers: Gastric ulcer chronicity: acute Qualified Code(s): K25.1 - Acute gastric ulcer with perforation (2) Anxiety disorder Qualifiers: Anxiety disorder type: panic disorder without agoraphobia Qualified Code(s): F41.0 - Panic disorder [episodic paroxysmal anxiety] (3) Osteoarthritis Qualifiers: Osteoarthritis location: unspecified site Osteoarthritis type: primary Qualified Code(s): M19.91 - Primary osteoarthritis, unspecified site (4) Hypertension Qualifiers: Hypertension type: essential hypertension Qualified Code(s): I10 - Essential (primary) hypertension (5) Diabetes Qualifiers: Diabetes mellitus type: type 2 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
[2018-07-10] MEDS ORDERED: *HR* Metoprolol 5 MG/5 ML VIAL IVP PRN (11:01)
[2018-07-10] MEDS ORDERED: Potassium Chloride 40 MEQ, Lidocaine 1% 2 ML in D5% in Water 500 ML IVPB ONE (11:16)
--- NOTE | 2018-07-10 11:54 | General Surgery Progress Note ---
Date of Encounter: 07/10/18 Time of Encounter: 11:52 - Assessment and Plan (1) Intra-abdominal free air of unknown etiology Current Visit: Yes Status: Acute Will clamp NGT today. Continue with ice chips/popsicle ok. Per Dr. Pineda; will likely order an UGI on 07/11/18. Continue with IV abx. Subjective Patient reports: no new complaints, other (No abdominal pain. No nausea or vomiting. NGT in place.) Objective Vital Signs - Last 8 Hours Temp Pulse Resp BP Pulse Ox 07/10/18 11:00 16 96 07/10/18 08:42 97 07/10/18 06:50 99.4 F 110 28 168/89 94 07/10/18 03:54 16 93 Intake and Output 07/09/18 07/10/18 07/10/18 23:59 07:59 15:59 Intake Total 200 / 200 300 / 300 450 / 450 Output Total 1335 / 1335 350 / 350 Balance -1135 / -1135 -50 / -50 450 / 450 Intake: IV Fluids 200 / 200 200 / 200 450 / 450 Ofirmev 1,000 mg/100 ml 1,000 100 / 100 100 / 100 100 / 100 mg In 100 ml @ 400 mls/hr IVPB Q6H [facility] Rx#:[id number] Intralipid 20% 250 ML @ 21 mls/ 250 / 250 hr IVPB DAILY@1700 [facility] Rx#: [id number] Ancef 2,000 MG In 0.9 % Sodium 100 / 100 100 / 100 100 / 100 Chloride 100 ML @ 200 mls/hr IVPB Q8HR [facility] Rx#:[id number] Oral 100 / 100 Output: Urine 25 / 25 0 / 0 Catheter 650 / 650 350 / 350 Urethral (Jernigan) 0 / 0 0 / 0 Gastric Drainage 660 / 660 0 / 0 Other: Meal NPO NPO Percent of Meal Consumed 0% 0% Weight 97.8 kg Blood Glucose* 105 162 Patient Weight 07/10/18 23:59 Weight 97.8 kg - General physical appearance well nourished, no distress - Respiratory normal expansion, normal respiratory effort - Abdomen Abdomen: Present: bowel sounds present, soft, non tender - Labs 07/10/18 06:30 07/10/18 06:30 Diabetes panel 07/10/18 Range/Units 06:30 Sodium 138 (136-145) mEq/L Potassium 3.4 L (3.5-5.1) mEq/L Chloride 104 (98-107) mEq/L Carbon Dioxide 28 (23-29) mEq/L BUN 19 (8-23) mg/dL Creatinine 0.59 L (0.60-1.20) mg/dL Glucose 193 H (70-105) mg/dL Calcium 8.7 (8.6-10.3) mg/dL Calcium panel 07/10/18 Range/Units 06:30 Calcium 8.7 (8.6-10.3) mg/dL Phosphorus 2.6 L (2.7-4.5) mg/dL Pituitary panel 07/10/18 Range/Units 06:30 Sodium 138 (136-145) mEq/L Potassium 3.4 L (3.5-5.1) mEq/L Chloride 104 (98-107) mEq/L Carbon Dioxide 28 (23-29) mEq/L BUN 19 (8-23) mg/dL Creatinine 0.59 L (0.60-1.20) mg/dL Glucose 193 H (70-105) mg/dL Calcium 8.7 (8.6-10.3) mg/dL Adrenal panel 07/10/18 Range/Units 06:30 Sodium 138 (136-145) mEq/L Potassium 3.4 L (3.5-5.1) mEq/L Chloride 104 (98-107) mEq/L Carbon Dioxide 28 (23-29) mEq/L BUN 19 (8-23) mg/dL Creatinine 0.59 L (0.60-1.20) mg/dL Glucose 193 H (70-105) mg/dL Calcium 8.7 (8.6-10.3) mg/dL Consult Discharge Plan - Plan Referrals: Ruba Perkins MD [Primary Care Provider] - 07/18/18 1:30 pm (Please follow up with Dr. Rey)
[2018-07-10] MEDS: *HR* Metoprolol 5 MG/5 ML VIAL IVP SCH ×2 (12:07→22:02)
[2018-07-10] MEDS: Clinimix E 5%-15% SOLUTION 2,000 ML with MVI, adult with vitamin K 10 ML IVC SCH (16:17)
[2018-07-10] MEDS ORDERED: Clinimix E 5%-15% SOLUTION 2,000 ML with MVI, adult with vitamin K 10 ML IVC SCH (17:00)
[2018-07-11] MEDS: OXYCODONE Oral CONC 10 MG/0.5 ML ORAL.SYG SL PRN (00:03)
[2018-07-11] MEDS: Insulin LISPRO 300 UNITS/3 ML VIAL SQ SCH ×4 (00:04→17:55)
[2018-07-11] MEDS: Acetaminophen IV 1,000 MG/100 ML INFUS..BTL IVPB SCH ×2 (00:56→10:08)
[2018-07-11] MEDS: Levalbuterol Neb 0.63 MG/3 ML IH SCH ×4 (04:20→21:00)
[2018-07-11] MEDS: *HR* Heparin 5,000 UNIT/ML VIAL SQ SCH ×2 (06:10→17:55)
[2018-07-11 06:45] LABS: Basophils # 0.1 K/mcL (0.0-0.2); Basophils % 0.6 %; Eosinophils % 10.3 %; Hemoglobin 10.5 g/dL (11.5-15.4); Lymphocytes # 1.3 K/mcL (0.6-4.6); Lymphocytes % 13.9 %; Mean Corpuscular HGB Conc 31.8 g/dL (31.6-35.5); Mean Corpuscular Hemoglobin 27.6 pg (28.0-33.3); Mean Corpuscular Volume 86.8 fL (83.0-100.0); Mean Platelet Volume 8.6 fL (9.4-12.4); Monocytes % 10.1 %; Neutrophils # 6.2 K/mcL (1.6-8.9); Platelet Count 239 K/mcL (140-400); Red Cell Distribution Width 14.6 % (11.5-14.5); Segmented Neutrophils % 64.1 %
[2018-07-11 07:12] LABS: BUN/Creatinine Ratio 36 (6-26); Blood Urea Nitrogen 18 mg/dL (8-23); Calcium 8.9 mg/dL (8.6-10.3); Carbon Dioxide 28 mEq/L (23-29); Chloride 101 mEq/L (98-107); Glucose 206 mg/dL (70-105); Magnesium 1.9 mg/dL (1.6-2.6); Osmolality,Calculated 290 (280-300); Phosphorous 2.9 mg/dL (2.7-4.5); Sodium 136 mEq/L (136-145); eGFR For Non-African Americans > 60 (> 60)
[2018-07-11] MEDS: Furosemide 40 MG/4 ML VIAL IVP SCH (08:55)
[2018-07-11] MEDS: Pantoprazole 40 MG VIAL IVP SCH ×2 (08:55→19:54)
--- NOTE | 2018-07-11 08:57 | Internal Med Progress Note ---
<Ayde Catalan - Last Filed: 07/11/18 12:39> Hospitalist Progress Note - Encounter Date of Encounter: 07/11/18 - Exam Vitals: Temp Pulse Resp BP Pulse Ox 98.4 F 115 20 132/77 95 07/11/18 11:22 07/11/18 11:22 07/11/18 11:22 07/11/18 11:22 07/11/18 11:22 - Assessment and Plan (1) Perforated gastric ulcer Current Visit: Yes Status: Acute (2) Anxiety disorder Current Visit: Yes Status: Acute (3) Osteoarthritis Current Visit: Yes Status: Acute (4) Hypertension Current Visit: Yes Status: Acute (5) Diabetes Current Visit: Yes Status: Acute (6) Pleural effusion Current Visit: Yes Status: Acute (7) DVT prophylaxis Current Visit: Yes Status: Acute (8) Tachycardia Current Visit: Yes Status: Acute (9) Hypophosphatemia Current Visit: Yes Status: Acute - Time Spent with Patient Total time spent is greater than 50% in coordination of care (as documented) at patient's floor/unit and/or counseling patient: Internal Medicine: Result - Labs CBC & Chem 7: 07/11/18 04:00 07/11/18 04:00 Labs: Short CBC 07/11/18 Range/Units 04:00 WBC 9.7 (4.3-11.1) K/mcL Hgb 10.5 L (11.5-15.4) g/dL Hct 33.0 L (35.3-44.9) % Plt Count 239 (140-400) K/mcL Neutrophils # 6.2 (1.6-8.9) K/mcL BMP 07/11/18 04:00 Sodium 136 Potassium 4.0 Chloride 101 Carbon Dioxide 28 BUN 18 Creatinine 0.50 L Glucose 206 H Calcium 8.9 - ABG Interpretation ABG results: PT/INR, D-dimer PT 13.2 Seconds (9.4-12.1) H 07/08/18 19:03 - Impressions Impressions Upper GI Series 07/11/18 08:09 IMPRESSION: Focal outpocketing at level of lesser curvature of stomach suggestive of gastric ulcer with surrounding mucosal edema. Direct visualization may be warranted for further evaluation. No evidence of contrast extravasation at site of ulcer. D/ / Deven Bennett / Deven Bennett Interpreting Provider: Deven Bennett Consult Discharge Plan - Plan Instructions: Diet for Ulcers and Gastritis (GEN) Referrals: Bill Pineda DO [Partnered Physician] - 07/19/18 2:50 pm Ruba Perkins MD [Primary Care Provider] - 07/18/18 1:30 pm (Please follow up with Dr. Rey) - Attending Attestation I examined this patient and my medical decision-making was reviewed with the Resident Physician dr Fernandez. I agree with the documented findings, disposition and treatment plan as described except to the extent set forth below. Hospitalist consult for chronic medical conditions and shortness of breath Ms Patel is here with perforated gastric ulcer. she developed shortness of breath and increased work of breathng.with moderate bl pleural effusions. awake, sitting in chair. on room air and no sob. states that when we examine her she cant take deep breath due to ngt and pain in her throat from it with deep inspiration. no cough, sputum, wheezing or orthopnea. denies fevers, chills, palpitations or cp gen- alert, awake,appears stated age cv- reg rate and regular rhythm, normal s1,s2, no murmurs appreciated, no pitting le edema lungs- improved aeration bl bases, no wheezing, rhonchi or crackles,, normal resp effort on room air, spo2 96% neuro- AAOx3 Shortness of Breath/Hypoxia 2/2 Moderat BL pleural effusions, improved, stable on room air -she is clinically significantly improved, may consider repeat cxr for re eval of effusions, if improved could monitor off lasix -incentive spirometry -cont xopenex nebs prn Perforated GAstric Ulcer- management as per primary team, TPN Sinus tachycardia - improved from earlier in admit- avoid albuterol nebs, lytes finally to goal, standing iv lopressor for bp and prn DM- bs slightly elevated today, previously at goal, would cont SSI and hold home metformin, adjust to medium correctional scale if consistently >180 HTN with variable BPs- IV prn lopressor while npo and may resume home meds when able to take po Hx Anxiety on xanax 0.5 mg BID prn- prn low dose 0.5mg IV ativan Incidental CT a/p finding mild bl hydronephrosis- UA unremarkable, creat wnl, caldera cath in place further diagnoses and treatment as documented by resident. <Gus Fernandez - Last Filed: 07/11/18 14:27> Hospitalist Progress Note - Encounter Date of Encounter: 07/11/18 Time of Encounter: 10:10 - Subjective Interval History: Patient is seen and evaluated in chair next to bed. She states that she has less abdominal pain, denies fevers. We practice incentive spirometry during our encounter, she denies shortness of breath but she also demonstrates somewhat limited tidal volumes. She has come back from her upper GI follow-through this morning. No evidence of extravasation on imaging she will be transitioned to clears today. - Exam Vitals: Temp Pulse Resp BP Pulse Ox 99.3 F 104 18 135/72 95 07/11/18 07:56 07/11/18 07:56 07/11/18 07:56 07/11/18 07:56 07/11/18 07:56 Exam: Gen.: awake, alert, appears stated age HEENT: EOMI; presence of clamped NG tube at time of evaluation Cardiac: RRR, no murmur, +S1/S2, non-pitting lower extremity edema Pulmonary: Limited tidal volume seen on incentive spirometry, no crackles rales or wheeze Abdomen: soft, nontender, Bowel sounds noted, no guarding Neuro: A&Ox3 - Assessment and Plan (1) Perforated gastric ulcer Current Visit: Yes Status: Acute Assessment and Plan: Per primary team has had upper GI follow-through this a.m. No extravasation of contrast from site of ulceration Primary team plans to discontinue NG tube and start her on clears (2) Pleural effusion Current Visit: Yes Status: Acute Assessment and Plan: Improved aeration and has demonstrated stability on room air Continuing to encourage incentive spirometry has lower tidal volume than expected Continuing Xopenex nebulizers prn She is now cumulatively -7.4 L, primary team can trial/monitor her off Lasix (3) Anxiety disorder Current Visit: Yes Status: Acute Assessment and Plan: No longer nothing by mouth switching to home prn medication (4) Osteoarthritis Current Visit: Yes Status: Acute Assessment and Plan: Pain management per primary team (5) Hypertension Current Visit: Yes Status: Acute Assessment and Plan: Did fairly well on IV Lopressor, now that she is cleared for clear liquids, will switch to home beta riri as well as ARB/HCTZ (6) Diabetes Current Visit: Yes Status: Acute Assessment and Plan: Holding home metformin, continuing sliding scale insulin may up titrate if persisting above 180 blood sugar (7) DVT prophylaxis Current Visit: Yes Status: Acute Assessment and Plan: Subcutaneous heparin - Time Spent with Patient Total time spent is greater than 50% in coordination of care (as documented) at patient's floor/unit and/or counseling patient: Internal Medicine: Result - Labs CBC & Chem 7: 07/11/18 04:00 07/11/18 04:00 Labs: Short CBC 07/11/18 Range/Units 04:00 WBC 9.7 (4.3-11.1) K/mcL Hgb 10.5 L (11.5-15.4) g/dL Hct 33.0 L (35.3-44.9) % Plt Count 239 (140-400) K/mcL Neutrophils # 6.2 (1.6-8.9) K/mcL BMP 07/11/18 04:00 Sodium 136 Potassium 4.0 Chloride 101 Carbon Dioxide 28 BUN 18 Creatinine 0.50 L Glucose 206 H Calcium 8.9 - ABG Interpretation ABG results: PT/INR, D-dimer PT 13.2 Seconds (9.4-12.1) H 07/08/18 19:03 <Ayde Catalan - Last Filed: 07/11/18 12:39> (1) Perforated gastric ulcer Qualifiers: Gastric ulcer chronicity: acute Qualified Code(s): K25.1 - Acute gastric ulcer with perforation (2) Anxiety disorder Qualifiers: Anxiety disorder type: panic disorder without agoraphobia Qualified Code(s): F41.0 - Panic disorder [episodic paroxysmal anxiety] (3) Osteoarthritis Qualifiers: Osteoarthritis location: unspecified site Osteoarthritis type: primary Qualified Code(s): M19.91 - Primary osteoarthritis, unspecified site (4) Hypertension Qualifiers: Hypertension type: essential hypertension Qualified Code(s): I10 - Essential (primary) hypertension (5) Diabetes Qualifiers: Diabetes mellitus type: type 2 Diabetes mellitus correction insulin use: without intermediate project manager use Diabetes mellitus complication status: with unspecified complications Qualified Code(s): E11.8 - Type 2 diabetes mellitus with unspecified complications <Gus Fernandez - Last Filed: 07/11/18 14:27> (1) Perforated gastric ulcer Qualifiers: Gastric ulcer chronicity: acute Qualified Code(s): K25.1 - Acute gastric ulcer with perforation (3) Anxiety disorder Qualifiers: Anxiety disorder type: panic disorder without agoraphobia Qualified Code(s): F41.0 - Panic disorder [episodic paroxysmal anxiety] (4) Osteoarthritis Qualifiers: Osteoarthritis location: unspecified site Osteoarthritis type: primary Qualified Code(s): M19.91 - Primary osteoarthritis, unspecified site (5) Hypertension Qualifiers: Hypertension type: essential hypertension Qualified Code(s): I10 - Essential (primary) hypertension (6) Diabetes Qualifiers: Diabetes mellitus type: type 2 Diabetes mellitus correction insulin use: without intermediate project manager use Diabetes mellitus complication status: with unspecified complications Qualified Code(s): E11.8 - Type 2 diabetes mellitus with unspecified complications
[2018-07-11] MEDS: *HR* Metoprolol 5 MG/5 ML VIAL IVP SCH (10:18)
[2018-07-11] MEDS ORDERED: *HR* Metoprolol 5 MG/5 ML VIAL IVP SCH (10:45)
--- NOTE | 2018-07-11 13:25 | General Surgery Progress Note ---
Date of Encounter: 07/11/18 Time of Encounter: 11:30 - Assessment and Plan (1) Perforated gastric ulcer Current Visit: Yes Status: Acute UGI 07/11/2018 with focal out pocketing seen at the level of the distal stomach along the lesser curvature with surrounding areas of lunacy, consistent with gastric ulcer. There is no evidence of contrast extravasation of the side of the ulcer. We will pull her NG tube and start clear liquid diet. She will be placed on a strict no caffeine, carbonation, chocolate, or tomato-based diet. We will continue her Carafate. She will need an outpatient follow-up with Dr. Pineda to discuss scheduling EGD in the next 10 to 14 days. Plan: continue supportive care and discomfort management DC NG start clears as above Continue TPN. serial abdominal exams repeat a.m. labs Continue IV antibiotics continue PPI BID Continue Carafate slurry 4 times daily. Continue EP CDs and incentive spirometry AVOID NSAIDs Qualifiers: Gastric ulcer chronicity: acute Qualified Code(s): K25.1 - Acute gastric ulcer with perforation (2) Shortness of breath Current Visit: Yes Status: Acute Management per hospitalist. We appreciate their assistance (3) Anxiety disorder Current Visit: Yes Status: Acute Patient takes chronic Xanex at home. May resume home dose per hospitalist Qualifiers: Anxiety disorder type: panic disorder without agoraphobia Qualified Code(s): F41.0 - Panic disorder [episodic paroxysmal anxiety] (4) Osteoarthritis Current Visit: Yes Status: Acute Avoid NSAIDs PRN pain control Qualifiers: Osteoarthritis location: unspecified site Osteoarthritis type: primary Qualified Code(s): M19.91 - Primary osteoarthritis, unspecified site (5) Hypertension Current Visit: Yes Status: Acute PRN antihypertensives Qualifiers: Hypertension type: essential hypertension Qualified Code(s): I10 - Essential (primary) hypertension (6) Diabetes Current Visit: Yes Status: Acute Q6 Accu checks sliding scale insulin Managment per hospitalist Qualifiers: Diabetes mellitus type: type 2 Diabetes mellitus correction insulin use: without intermediate frame tender use Diabetes mellitus complication status: with unspecified complications Qualified Code(s): E11.8 - Type 2 diabetes mellitus with unspe cified complications (7) Uterine mass Current Visit: Yes Status: Acute CT abdomen and pelvis with IV contrast notes the large mass involving the uterus with mixed density, measuring just over 10 cm, primarily involving the endom etrial canal with the rind of [place] drama., Urinary bladder is compressed inferior the, small amount of pelvic fluid. Of note she did have a pelvic MRI in October 2015 which demonstrated an enlarged uterus at 14.6 x 12 x 11.5 cm and a large dominant uterine fibroids measuring 10.3 x 9.8 x 10.7 cm. Per record review, she saw Dr. Baeza 05/11/2016 at which time he noted the uterine mass and that her "uterus has been 14 to 16 weeks size for years." He recommended an ultrasound to compare to the MRI but the patient refused. Plan: Consult to OB for asst vs imaging review and outpatient follow-up placed. Subjective Patient reports: no new complaints, feels better, pain is less, voiding w/o difficulty, flatus, bowel movement, afebrile Objective Vital Signs - Last 8 Hours Temp Pulse Resp BP Pulse Ox 07/11/18 11:22 98.4 F 115 20 132/77 95 07/11/18 10:32 16 95 07/11/18 10:05 104 07/11/18 07:56 99.3 F 104 18 135/72 95 Intake and Output 07/10/18 07/11/18 07/11/18 23:59 07:59 15:59 Intake Total 300 / 300 350 / 350 200 / 200 Output Total 550 / 550 950 / 950 1000 / 1000 Balance -250 / -250 -600 / -600 -800 / -800 Intake: IV Fluids 200 / 200 350 / 350 200 / 200 Ofirmev 1,000 mg/100 ml 1,000 200 / 200 100 / 100 mg In 100 ml @ 400 mls/hr IVPB Q6H [facility] Rx#:[id number] Intralipid 20% 250 ML @ 21 mls/ 250 / 250 hr IVPB DAILY@1700 [facility] Rx#: [id number] Ancef 2,000 MG In 0.9 % Sodium 100 / 100 100 / 100 Chloride 100 ML @ 200 mls/hr IVPB Q8HR [facility] Rx#:[id number] Oral 100 / 100 Output: Catheter 550 / 550 950 / 950 1000 / 1000 Urethral (Jernigan) 0 / 0 0 / 0 Other: Meal NPO Percent of Meal Consumed 0% # Bowel Movements 1 Weight 97.2 kg Blood Glucose* 192 170 224 Patient Weight 07/11/18 23:59 Weight 97.2 kg - General physical appearance no distress, no pain - Eyes normal ocular movement - ENT normal nares, atraumatic, normocephalic - Neck Neck exam: trachea midline - Respiratory other (decreaed but improved) - Cardiovascular Cardiovascular exam: Present: tachycardia - Abdomen Abdomen: Present: bowel sounds present, soft, non tender - Integumentary no rash - Neurologic normal sensation - Musculoskeletal normal gait, normal posture - Psychiatric oriented to time, oriented to person, oriented to place, speech is normal, memory intact - Labs 07/11/18 04:00 07/11/18 04:00 Diabetes panel 07/11/18 Range/Units 04:00 Sodium 136 (136-145) mEq/L Potassium 4.0 (3.5-5.1) mEq/L Chloride 101 (98-107) mEq/L Carbon Dioxide 28 (23-29) mEq/L BUN 18 (8-23) mg/dL Creatinine 0.50 L (0.60-1.20) mg/dL Glucose 206 H (70-105) mg/dL Calcium 8.9 (8.6-10.3) mg/dL Calcium panel 07/11/18 Range/Units 04:00 Calcium 8.9 (8.6-10.3) mg/dL Phosphorus 2.9 (2.7-4.5) mg/dL Pituitary panel 07/11/18 Range/Units 04:00 Sodium 136 (136-145) mEq/L Potassium 4.0 (3.5-5.1) mEq/L Chloride 101 (98-107) mEq/L Carbon Dioxide 28 (23-29) mEq/L BUN 18 (8-23) mg/dL Creatinine 0.50 L (0.60-1.20) mg/dL Glucose 206 H (70-105) mg/dL Calcium 8.9 (8.6-10.3) mg/dL Adrenal panel 07/11/18 Range/Units 04:00 Sodium 136 (136-145) mEq/L Potassium 4.0 (3.5-5.1) mEq/L Chloride 101 (98-107) mEq/L Carbon Dioxide 28 (23-29) mEq/L BUN 18 (8-23) mg/dL Creatinine 0.50 L (0.60-1.20) mg/dL Glucose 206 H (70-105) mg/dL Calcium 8.9 (8.6-10.3) mg/dL Consult Discharge Plan - Plan Instructions: Diet for Ulcers and Gastritis (GEN) Referrals: Ruba Perkins MD [Primary Care Provider] - 07/18/18 1:30 pm (Please follow up with Dr. Rey) Bill Pineda DO [Partnered Physician] - 07/19/18 2:50 pm
[2018-07-11] MEDS ORDERED: ALPRAZolam 0.5 MG TABLET PO PRN (14:12)
[2018-07-11] MEDS: Clinimix E 5%-15% SOLUTION 2,000 ML with MVI, adult with vitamin K 10 ML IVC SCH (16:18)
[2018-07-11] MEDS ORDERED: Clinimix E 5%-15% SOLUTION 2,000 ML with MVI, adult with vitamin K 10 ML IVC SCH (17:00)
[2018-07-12] MEDS: Insulin LISPRO 300 UNITS/3 ML VIAL SQ SCH ×5 (00:20→19:51)
[2018-07-12] MEDS: OXYCODONE Oral CONC 10 MG/0.5 ML ORAL.SYG SL PRN ×2 (00:28→21:52)
[2018-07-12] MEDS: Levalbuterol Neb 0.63 MG/3 ML IH SCH ×4 (03:50→22:29)
[2018-07-12 04:10] LABS: Basophils # 0.1 K/mcL (0.0-0.2); Basophils % 0.5 %; Eosinophils # 0.8 K/mcL (0.0-0.6); Eosinophils % 5.9 %; Hematocrit 32.7 % (35.3-44.9); Hemoglobin 10.3 g/dL (11.5-15.4); Immature Granulocytes % 1.8 % (0-4); Lymphocytes % 15.6 %; Mean Corpuscular HGB Conc 31.5 g/dL (31.6-35.5); Mean Corpuscular Hemoglobin 27.3 pg (28.0-33.3); Mean Corpuscular Volume 86.7 fL (83.0-100.0); Mean Platelet Volume 8.7 fL (9.4-12.4); Monocytes # 1.3 K/mcL (0.0-1.3); Monocytes % 10.1 %; Neutrophils # 8.5 K/mcL (1.6-8.9); Platelet Count 298 K/mcL (140-400); Red Blood Count 3.77 M/mcL (3.82-4.97); Red Cell Distribution Width 14.5 % (11.5-14.5); Segmented Neutrophils % 66.1 %
[2018-07-12 04:34] LABS: BUN/Creatinine Ratio 39 (6-26); Blood Urea Nitrogen 22 mg/dL (8-23); Carbon Dioxide 27 mEq/L (23-29); Chloride 101 mEq/L (98-107); Glucose 210 mg/dL (70-105); Magnesium 1.9 mg/dL (1.6-2.6); Osmolality,Calculated 288 (280-300); Phosphorous 2.9 mg/dL (2.7-4.5); Sodium 134 mEq/L (136-145); eGFR For Non-African Americans > 60 (> 60)
[2018-07-12] MEDS: *HR* Heparin 5,000 UNIT/ML VIAL SQ SCH ×2 (05:55→17:23)
--- NOTE | 2018-07-12 07:24 | Internal Med Progress Note ---
<Gus Fernandez - Last Filed: 07/12/18 12:59> Hospitalist Progress Note - Encounter Date of Encounter: 07/12/18 Time of Encounter: 09:00 - Subjective Interval History: 07/12 Patient continues to do well on room air, she is tolerating advancement of her diet, I/Os have been adequate; patient stable from respiratory standpoint. Her white count did increase today, but her UA is negative, no fevers, no shortness of breath. 07/11 Patient is seen and evaluated in chair next to bed. She states that she has less abdominal pain, denies fevers. We practice incentive spirometry during our encounter, she denies shortness of breath but she also demonstrates somewhat limited tidal volumes. She has come back from her upper GI follow-through this morning. No evidence of extravasation on imaging she will be transitioned to clears today. - Exam Vitals: Temp Pulse Resp BP Pulse Ox 98.8 F 117 16 149/79 91 07/12/18 03:12 07/12/18 03:12 07/12/18 03:50 07/12/18 03:12 07/12/18 03:50 Exam: Gen.: awake, alert, appears stated age HEENT: EOMI; trachea midline Cardiac: RRR, no murmur, +S1/S2, no edema Pulmonary: Limited tidal volume seen on incentive spirometry, no crackles rales or wheeze Abdomen: soft, nontender, Bowel sounds noted, no guarding Neuro: A&Ox3 - Assessment and Plan (1) Perforated gastric ulcer Current Visit: Yes Status: Acute Assessment and Plan: Management per Primary team - weaning TPN, plan for scope outpatient Currently on Full liquids (2) Pleural effusion Current Visit: Yes Status: Acute Assessment and Plan: Moderate Pleural Effusions on chest CT 07/08; s/p diuresis, -5.5L net negative Stable on room air today; saturating 94-97% Continuing with incentive spirometry; prn mucinex, nebs (3) Anxiety disorder Current Visit: Yes Status: Acute Assessment and Plan: PRN home benzo; no significant anxiety this admission (4) Osteoarthritis Current Visit: Yes Status: Acute Assessment and Plan: Oxycodone q4h per primary Home NSAIDS held in setting of gastric ulcer (5) Hypertension Current Visit: Yes Status: Acute Assessment and Plan: Resumed home meds; bb + acei/hctz (6) Diabetes Current Visit: Yes Status: Acute Assessment and Plan: on sliding scale, home metformin held (7) DVT prophylaxis Current Visit: Yes Status: Acute Assessment and Plan: sq heparin - Time Spent with Patient Total time spent is greater than 50% in coordination of care (as documented) at patient's floor/unit and/or counseling patient: Internal Medicine: Result - Labs CBC & Chem 7: 07/12/18 03:53 07/12/18 03:53 Labs: Short CBC 07/12/18 Range/Units 03:53 WBC 12.9 H (4.3-11.1) K/mcL Hgb 10.3 L (11.5-15.4) g/dL Hct 32.7 L (35.3-44.9) % Plt Count 298 (140-400) K/mcL Neutrophils # 8.5 (1.6-8.9) K/mcL BMP 07/12/18 03:53 Sodium 134 L Potassium 4.0 Chloride 101 Carbon Dioxide 27 BUN 22 Creatinine 0.56 L Glucose 210 H Calcium 9.0 - ABG Interpretation ABG results: PT/INR, D-dimer PT 13.2 Seconds (9.4-12.1) H 07/08/18 19:03 - Impressions Impressions Upper GI Series 07/11/18 08:09 IMPRESSION: Focal outpocketing at level of lesser curvature of stomach suggestive of gastric ulcer with surrounding mucosal edema. Direct visualization may be warranted for further evaluation. No evidence of contrast extravasation at site of ulcer. D/ / Deven Bennett / Deven Bennett Interpreting Provider: Deven Bennett Consult Discharge Plan - Plan Instructions: Diet for Ulcers and Gastritis (GEN) Referrals: Blil Pineda DO [Partnered Physician] - 07/19/18 2:50 pm Ruba Perkins MD [Primary Care Provider] - 07/18/18 1:30 pm (Please follow up with Dr. Rey) <Leland Goldstein - Last Filed: 07/12/18 19:10> Hospitalist Progress Note - Encounter Date of Encounter: 07/12/18 - Exam Vitals: Temp Pulse Resp BP Pulse Ox 99.4 F 84 18 96/56 94 07/12/18 16:25 07/12/18 16:25 07/12/18 16:25 07/12/18 16:25 07/12/18 16:25 - Assessment and Plan (1) Perforated gastric ulcer Current Visit: Yes Status: Acute (2) Anxiety disorder Current Visit: Yes Status: Acute (3) Osteoarthritis Current Visit: Yes Status: Acute (4) Hypertension Current Visit: Yes Status: Acute (5) Diabetes Current Visit: Yes Status: Acute (6) Pleural effusion Current Visit: Yes Status: Acute (7) DVT prophylaxis Current Visit: Yes Status: Acute (8) Tachycardia Current Visit: Yes Status: Acute (9) Hypophosphatemia Current Visit: Yes Status: Acute - Time Spent with Patient Total time spent is greater than 50% in coordination of care (as documented) at patient's floor/unit and/or counseling patient: Internal Medicine: Result - Labs CBC & Chem 7: 07/12/18 03:53 07/12/18 03:53 Labs: Short CBC 07/12/18 Range/Units 03:53 WBC 12.9 H (4.3-11.1) K/mcL Hgb 10.3 L (11.5-15.4) g/dL Hct 32.7 L (35.3-44.9) % Plt Count 298 (140-400) K/mcL Neutrophils # 8.5 (1.6-8.9) K/mcL BMP 07/12/18 03:53 Sodium 134 L Potassium 4.0 Chloride 101 Carbon Dioxide 27 BUN 22 Creatinine 0.56 L Glucose 210 H Calcium 9.0 Urine 07/12/18 Range/Units 09:35 Urine Color Yellow (Yellow) Urine Clarity Clear (Clear) Urine pH 6.5 (5.0-8.0) pH Units Ur Specific [place] < 1.005 L (1.010-1.025) Urine Protein Negative (Neg-Trace) mg/dL Urine Glucose (UA) Normal (Normal) mg/dL - ABG Interpretation ABG results: PT/INR, D-dimer PT 13.2 Seconds (9.4-12.1) H 07/08/18 19:03 - Attending Attestation I examined this patient and my medical decision-making was reviewed with the Resident Physician on 07/12/18. I agree with the documented findings, dispo sition and treatment plan as described except to the extent set forth below. Ms Jorge is currently admitted for acute perforated gastric ulcer. She is now on PO diet. She denies dyspnea. BP has been elevated and meds adjusted. Exam alert Comfortable Mucus membranes dry Heart reg and not tachy No wheeze abd soft No edema I/P 1. HTN - adjust meds 2. Perforated gastric ulcer 3. Dyspnea improvd Further diagnoses and plan as above. <Gus Fernandez - Last Filed: 07/12/18 12:59> (1) Perforated gastric ulcer Qualifiers: Gastric ulcer chronicity: acute Qualified Code(s): K25.1 - Acute gastric ulcer with perforation (3) Anxiety disorder Qualifiers: Anxiety disorder type: panic disorder without agoraphobia Qualified Code(s): F41.0 - Panic disorder [episodic paroxysmal anxiety] (4) Osteoarthritis Qualifiers: Osteoarthritis location: unspecified site Osteoarthritis type: primary Qualified Code(s): M19.91 - Primary osteoarthritis, unspecified site (5) Hypertension Qualifiers: Hypertension type: essential hypertension Qualified Code(s): I10 - Essential (primary) hypertension (6) Diabetes Qualifiers: Diabetes mellitus type: type 2 Diabetes mellitus professional architect insulin use: without professional architect use Diabetes mellitus complication status: with unspecified complications Qualified Code(s): E11.8 - Type 2 diabetes mellitus with unspecified complications <Leland Goldstein - Last Filed: 07/12/18 19:10> (1) Perforated gastric ulcer Qualifiers: Gastric ulcer chronicity: acute Qualified Code(s): K25.1 - Acute gastric ulcer with perforation (2) Anxiety disorder Qualifiers: Anxiety disorder type: panic disorder without agoraphobia Qualified Code(s): F41.0 - Panic disorder [episodic paroxysmal anxiety] (3) Osteoarthritis Qualifiers: Osteoarthritis location: unspecified site Osteoarthritis type: primary Qualified Code(s): M19.91 - Primary osteoarthritis, unspecified site (4) Hypertension Qualifiers: Hypertension type: essential hypertension Qualified Code(s): I10 - Essential (primary) hypertension (5) Diabetes Qualifiers: Diabetes mellitus type: type 2 Diabetes mellitus assisted insulin use: without assisted use Diabetes mellitus complication status: with unspecified complications Qualified Code(s): E11.8 - Type 2 diabetes mellitus with unspecified complications
[2018-07-12] MEDS: Losartan/HCTZ 50-12.5 TABLET PO SCH (07:59)
[2018-07-12] MEDS: Furosemide 40 MG/4 ML VIAL IVP SCH (07:59)
[2018-07-12] MEDS: Pantoprazole 40 MG VIAL IVP SCH ×2 (07:59→20:14)
--- NOTE | 2018-07-12 09:36 | General Surgery Progress Note ---
Date of Encounter: 07/12/18 Time of Encounter: 09:33 - Assessment and Plan (1) Perforated gastric ulcer Current Visit: Yes Status: Acute UGI 07/11/2018 with focal out pocketing seen at the level of the distal stomach along the lesser curvature with surrounding areas of lunacy, consistent with gastric ulcer. There is no evidence of contrast extravasation of the side of the ulcer. She will need OP f/u with Dr. pino for EGD. NG d/c'd 07/11. Advance diet to fulls, No carbonation, caffeine, tomato base, or chocolate diet. She did have an increase in WBC without explanation. She denies shortness of breath, cough, urinary signs or symptoms. We will obtain a UA with reflux to culture from her Caldera catheter and then she is recommended to have the catheter removed. Total fluid and chronic condition management per hospitalist (removal of Caldera catheter per hospitalist in the event the need for diuresis). Surgery did go ahead in place for consult APPLICATION PROCESSOR for review of imaging of large uterine mass (suspects known fibroid). Anticipate d/c in the next 24-48 hours pending clinical course Plan: continue supportive care and discomfort management full liquid diet as above. Wean TPN to stop serial abdominal exams repeat a.m. labs Continue IV antibiotics continue PPI BID change Carafate slurry to Carafate tablet Continue EP CDs and incentive spirometry AVOID NSAIDs Qualifiers: Gastric ulcer chronicity: acute Qualified Code(s): K25.1 - Acute gastric ulcer with perforation (2) Shortness of breath Current Visit: Yes Status: Acute Management per hospitalist. We appreciate their assistance (3) Anxiety disorder Current Visit: Yes Status: Acute Patient takes chronic Xanex at home. May resume home dose per hospitalist Qualifiers: Anxiety disorder type: panic disorder without agoraphobia Qualified Code(s): F41.0 - Panic disorder [episodic paroxysmal anxiety] (4) Osteoarthritis Current Visit: Yes Status: Acute Avoid NSAIDs PRN pain control Qualifiers: Osteoarthritis location: unspecified site Osteoarthritis type: primary Qualified Code(s): M19.91 - Primary osteoarthritis, unspecified site (5) Hypertension Current Visit: Yes Status: Acute PRN antihypertensives Qualifiers: Hypertension type: essential hypertension Qualified Code(s): I10 - Essential (primary) hypertension (6) Diabetes Current Visit: Yes Status: Acute Q6 Accu checks sliding scale insulin Managment per hospitalist Qualifiers: Diabetes mellitus type: type 2 Diabetes mellitus shelter insulin use: without shelter use Diabetes mellitus complication status: with unspecified complications Qualified Code(s): E11.8 - Type 2 diabetes mellitus with unspecified complications (7) Uterine mass Current Visit: Yes Status: Acute CT abdomen and pelvis with IV contrast notes the large mass involving the uterus with mixed density, measuring just over 10 cm, primarily involving the endometrial canal with the rind of Harper drama., Urinary bladder is compressed inferior the, small amount of pelvic fluid. Of note she did have a pelvic MRI in October 2015 which demonstrated an enlarged uterus at 14.6 x 12 x 11.5 cm and a large dominant uterine fibroids measuring 10.3 x 9.8 x 10.7 cm. Per record review, she saw Dr. Baeza 05/11/2016 at which time he noted the uterine mass and that her "uterus has been 14 to 16 weeks size for years." He recommended an ultrasound to compare to the MRI but the patient refused. Plan: Consult to OB for asst vs imaging review and outpatient follow-up placed. Subjective Patient reports: no new complaints, feels better, pain is less, tolerating liquids well, voiding w/o difficulty (per caldera), flatus, bowel movement, afebrile Objective Vital Signs - Last 8 Hours Temp Pulse Resp BP Pulse Ox 07/12/18 03:50 16 91 07/12/18 03:12 98.8 F 117 18 149/79 91 Intake and Output 07/11/18 07/12/18 07/12/18 23:59 07:59 15:59 Intake Total 1841 / 1841 100 / 100 240 / 240 Output Total 550 / 550 Balance 1291 / 1291 100 / 100 240 / 240 Intake: IV Fluids 1841 / 1841 100 / 100 Clinimix E 5%-15% SOLUTION 2, 1741 / 1741 000 ML @ 70 mls/hr IVC .Q24H NOLAN with M.v.i. Adult 10 ml Rx# :[id number] Ancef 2,000 MG In 0.9 % Sodium 100 / 100 100 / 100 Chloride 100 ML @ 200 mls/hr IVPB Q8HR NOLAN Rx#:[id number] Oral 0 / 0 240 / 240 Output: Catheter 550 / 550 Other: Weight 97.2 kg Blood Glucose* 184 199 Patient Weight 07/12/18 23:59 Weight 97.2 kg - General physical appearance well nourished, no distress - Eyes normal ocular movement - ENT normal nares, normal mucosa - Neck Neck exam: trachea midline - Respiratory normal expansion, normal respiratory effort, clear to auscultation - Cardiovascular Cardiovascular exam: Present: tachycardia - Abdomen Abdomen: Present: bowel sounds present, soft, non tender Hernia: none - Integumentary no rash - Neurologic normal coordination, normal sensation - Musculoskeletal normal gait, normal posture - Psychiatric oriented to time, oriented to place, memory intact - Labs 07/12/18 03:53 07/12/18 03:53 Diabetes panel 07/12/18 Range/Units 03:53 Sodium 134 L (136-145) mEq/L Potassium 4.0 (3.5-5.1) mEq/L Chloride 101 (98-107) mEq/L Carbon Dioxide 27 (23-29) mEq/L BUN 22 (8-23) mg/dL Creatinine 0.56 L (0.60-1.20) mg/dL Glucose 210 H (70-105) mg/dL Calcium 9.0 (8.6-10.3) mg/dL Calcium panel 07/12/18 Range/Units 03:53 Calcium 9.0 (8.6-10.3) mg/dL Phosphorus 2.9 (2.7-4.5) mg/dL Pituitary panel 07/12/18 Range/Units 03:53 Sodium 134 L (136-145) mEq/L Potassium 4.0 (3.5-5.1) mEq/L Chloride 101 (98-107) mEq/L Carbon Dioxide 27 (23-29) mEq/L BUN 22 (8-23) mg/dL Creatinine 0.56 L (0.60-1.20) mg/dL Glucose 210 H (70-105) mg/dL Calcium 9.0 (8.6-10.3) mg/dL Adrenal panel 07/12/18 Range/Units 03:53 Sodium 134 L (136-145) mEq/L Potassium 4.0 (3.5-5.1) mEq/L Chloride 101 (98-107) mEq/L Carbon Dioxide 27 (23-29) mEq/L BUN 22 (8-23) mg/dL Creatinine 0.56 L (0.60-1.20) mg/dL Glucose 210 H (70-105) mg/dL Calcium 9.0 (8.6-10.3) mg/dL Consult Discharge Plan - Plan Instructions: Diet for Ulcers and Gastritis (GEN) Referrals: Bill Pino DO [Partnered Physician] - 07/19/18 2:50 pm Ruba Perkins MD [Primary Care Provider] - 07/18/18 1:30 pm (Please follow up with Dr. Rey)
[2018-07-12 09:55] LABS: Bilirubin,Urine Negative (Negative); Blood,Urine Negative (Negative); Clarity,Urine Clear (Clear); Color,Urine Yellow (Yellow); Glucose,Urine (UA) Normal (Normal); Ketones,Urine Negative (Negative); Leukocyte Esterase,Urine Negative (Negative); Nitrite,Urine Negative (Negative); PH,Urine 6.5 pH Units (5.0-8.0); Protein,Urine Negative (Neg-Trace); Specific Gravity,Urine < 1.005 (1.010-1.025); Urobilinogen,Urine Normal (Normal)
[2018-07-12] MEDS: Sucralfate 1 GM TABLET PO SCH ×3 (11:56→20:14)
[2018-07-12] MEDS: Clinimix E 5%-15% SOLUTION 2,000 ML with MVI, adult with vitamin K 10 ML IVC SCH (17:36)
[2018-07-13 03:57] LABS: Basophils # 0.1 K/mcL (0.0-0.2); Basophils % 0.7 %; Eosinophils # 1.3 K/mcL (0.0-0.6); Eosinophils % 9.2 %; Hematocrit 32.9 % (35.3-44.9); Hemoglobin 10.2 g/dL (11.5-15.4); Immature Granulocytes % 2.1 % (0-4); Lymphocytes # 2.8 K/mcL (0.6-4.6); Lymphocytes % 20.8 %; Mean Corpuscular Hemoglobin 26.8 pg (28.0-33.3); Mean Corpuscular Volume 86.6 fL (83.0-100.0); Mean Platelet Volume 8.7 fL (9.4-12.4); Monocytes # 1.3 K/mcL (0.0-1.3); Monocytes % 9.3 %; Neutrophils # 7.9 K/mcL (1.6-8.9); Platelet Count 349 K/mcL (140-400); Red Cell Distribution Width 14.4 % (11.5-14.5); Segmented Neutrophils % 57.9 %
[2018-07-13] MEDS: Levalbuterol Neb 0.63 MG/3 ML IH SCH ×4 (04:03→23:10)
[2018-07-13 04:15] LABS: BUN/Creatinine Ratio 40 (6-26); Blood Urea Nitrogen 26 mg/dL (8-23); Calcium 9.1 mg/dL (8.6-10.3); Carbon Dioxide 29 mEq/L (23-29); Chloride 99 mEq/L (98-107); Glucose 113 mg/dL (70-105); Osmolality,Calculated 286 (280-300); Potassium 3.9 mEq/L (3.5-5.1); Sodium 135 mEq/L (136-145); eGFR For Non-African Americans > 60 (> 60)
[2018-07-13 04:30] LABS: Platelet Estimate Normal (Normal)
[2018-07-13] MEDS: OXYCODONE Oral CONC 10 MG/0.5 ML ORAL.SYG SL PRN (05:30)
[2018-07-13] MEDS: *HR* Heparin 5,000 UNIT/ML VIAL SQ SCH ×2 (05:30→16:37)
[2018-07-13] MEDS: Losartan/HCTZ 50-12.5 TABLET PO SCH (07:52)
[2018-07-13] MEDS: Pantoprazole 40 MG VIAL IVP SCH ×2 (07:52→20:40)
[2018-07-13] MEDS: Sucralfate 1 GM TABLET PO SCH ×4 (07:52→20:40)
[2018-07-13] MEDS: Insulin LISPRO 300 UNITS/3 ML VIAL SQ SCH ×4 (08:02→20:40)
--- NOTE | 2018-07-13 08:57 | Internal Med Progress Note ---
<Graciela Leyva - Last Filed: 07/13/18 14:46> Hospitalist Progress Note - Encounter Date of Encounter: 07/13/18 Time of Encounter: 08:56 - Subjective Interval History: Patient seen and examined, she is alert and oriented times 3 and no acute distress. She is sitting up in her chair watching television. She reports she is tolerating oral diet well. She denies abdominal pain, nausea, vomiting, chest pain, shortness of breath, cough, wheezing. She is no other complaints. - Exam Vitals: Temp Pulse Resp BP Pulse Ox 98.7 F 106 20 126/71 90 07/13/18 07:37 07/13/18 08:08 07/13/18 08:04 07/13/18 07:37 07/13/18 08:04 Exam: Gen.: Vitals noted. No acute distress. AAOx3 HEENT: oropharynx clear, Normocephalic, atraumatic, NG tube in place Cardiac: RRR, no murmur, +S1/S2, non-pitting lower extremity edema Pulmonary: CTA bilaterally, no wheezes, rales or rhonchi, equal chest expansion Abdomen: soft, nontender, Bowel sounds noted, no guarding MSK: ROM intact, no joint swelling noted Extremities: nontender calf, no cyanosis or clubbing Neuro: A&Ox3, moves all extremities, no focal deficits Psych: Appropriate mood and behavior . - Assessment and Plan (1) Perforated gastric ulcer Current Visit: Yes Status: Acute Assessment and Plan: Secondary to chronic NSAID use, patient admitted to taking meloxicam for her osteoarthritis. Abdominal CT demonstrating perforated gastric ulcer. Also noted a large uterine mass. -Management continues to be per primary surgical team. Stable for discharge according to surgery. -patient is on Protonix, carafate, Phenergan -tolerating diet well -incidental imaging finding:per medical records patient is aware of uterine mass and follows with Dr. Baeza of [facility]. (2) Pleural effusion Current Visit: Yes Status: Acute Assessment and Plan: Repeat chest x-ray today demonstrated small pleural effusion. Chest CT demonstrates pleural effusion and bibasilar atelectasis patient denies shortness of breath. She does report clear sputum production. Lung examination now clear -Pleural effusion is likely secondary to IV fluids that were given. -Agree with continue diuresis -currently on room air, supplemental oxygen is needed - encouraged incentive spirometry (3) Anxiety disorder Current Visit: Yes Status: Acute Assessment and Plan: History of known anxiety taking Xanax at home. -Patient is currently on Ativan IV due to NPO status and to keep patient from benzodiazepine withdrawal (4) Osteoarthritis Current Visit: Yes Status: Acute Assessment and Plan: Chronic osteoarthritis with long history of taking NSAIDs. She reports taking meloxicam. -Currently on pain management with oxycodone per primary team (5) Hypertension Current Visit: Yes Status: Acute Assessment and Plan: History of hypertension. Blood pressure controlled takes losartan/hctz and atenolol at home -continue home medications (6) Diabetes Current Visit: Yes Status: Acute Assessment and Plan: History of chronic diabetes taking metformin. Glucose controlled, goal bs <180 -Patient on low dose sliding scale insulin q6h (7) Tachycardia Current Visit: Yes Status: Acute Assessment and Plan: Resolved. Sinus tachycardia -continue to home beta riri -cont pain control (8) Hypophosphatemia Current Visit: Yes Status: Acute Assessment and Plan: Resolved. Continue to monitor (9) DVT prophylaxis Current Visit: Yes Status: Acute Assessment and Plan: Heparin SQ (10) Pneumonia Current Visit: Yes Status: Acute Assessment and Plan: Pneumonia demonstrated by new chest x-ray today. Imaging demonstrating by basilar airspace disease with suspected pleural effusion likely related to atelectasis or pneumonia. This is most likely hospital acquired pneumonia as she has been admitted for 5 days. Afebrile WBC 13.6, yesterday 12.9 lung examination is decreased breath sounds bilaterally however there clear with no wheezing patient reports she is not having dyspnea, cough, wheezing -change antibiotic from cefazolin to cefepime -will continue to monitor for fever and CBC tomorrow. Likely to discharge tomorrow with oral antibiotic. - Time Spent with Patient Total time spent is greater than 50% in coordination of care (as documented) at patient's floor/unit and/or counseling patient: Internal Medicine: Result - Labs CBC & Chem 7: 07/13/18 03:30 07/13/18 03:30 Labs: Short CBC 07/13/18 Range/Units 03:30 WBC 13.6 H (4.3-11.1) K/mcL Hgb 10.2 L (11.5-15.4) g/dL Hct 32.9 L (35.3-44.9) % Plt Count 349 (140-400) K/mcL Neutrophils # 7.9 (1.6-8.9) K/mcL BMP 07/13/18 03:30 Sodium 135 L Potassium 3.9 Chloride 99 Carbon Dioxide 29 BUN 26 H Creatinine 0.65 Glucose 113 H Calcium 9.1 Urine 07/12/18 Range/Units 09:35 Urine Color Yellow (Yellow) Urine Clarity Clear (Clear) Urine pH 6.5 (5.0-8.0) pH Units Ur Specific [place] < 1.005 L (1.010-1.025) Urine Protein Negative (Neg-Trace) mg/dL Urine Glucose (UA) Normal (Normal) mg/dL - ABG Interpretation ABG results: PT/INR, D-dimer PT 13.2 Seconds (9.4-12.1) H 07/08/18 19:03 Consult Discharge Plan - Plan Instructions: Diet for Ulcers and Gastritis (GEN), Pneumonia (DC) Referrals: Bill Pineda DO [Partnered Physician] - 07/18/18 2:45 pm (hosp f/u and EGD results) Ruba Perkins MD [Primary Care Provider] - 07/18/18 1:30 pm (Please follow up with Dr. Rey) <Leland Goldstein - Last Filed: 07/13/18 18:25> Hospitalist Progress Note - Encounter Date of Encounter: 07/13/18 - Exam Vitals: Temp Pulse Resp BP Pulse Ox 98.1 F 88 18 117/69 97 07/13/18 16:39 07/13/18 16:43 07/13/18 16:43 07/13/18 16:43 07/13/18 16:43 - Assessment and Plan (1) Perforated gastric ulcer Current Visit: Yes Status: Acute (2) Anxiety disorder Current Visit: Yes Status: Acute (3) Osteoarthritis Current Visit: Yes Status: Acute (4) Hypertension Current Visit: Yes Status: Acute (5) Diabetes Current Visit: Yes Status: Acute (6) Pleural effusion Current Visit: Yes Status: Acute (7) DVT prophylaxis Current Visit: Yes Status: Acute (8) Tachycardia Current Visit: Yes Status: Acute (9) Hypophosphatemia Current Visit: Yes Status: Acute (10) Pneumonia Current Visit: Yes Status: Suspected - Time Spent with Patient Total time spent is greater than 50% in coordination of care (as documented) at patient's floor/unit and/or counseling patient: Internal Medicine: Result - Labs CBC & Chem 7: 07/13/18 03:30 07/13/18 03:30 Labs: Short CBC 07/13/18 Range/Units 03:30 WBC 13.6 H (4.3-11.1) K/mcL Hgb 10.2 L (11.5-15.4) g/dL Hct 32.9 L (35.3-44.9) % Plt Count 349 (140-400) K/mcL Neutrophils # 7.9 (1.6-8.9) K/mcL BMP 07/13/18 03:30 Sodium 135 L Potassium 3.9 Chloride 99 Carbon Dioxide 29 BUN 26 H Creatinine 0.65 Glucose 113 H Calcium 9.1 - ABG Interpretation ABG results: PT/INR, D-dimer PT 13.2 Seconds (9.4-12.1) H 07/08/18 19:03 - Impressions Impressions Chest X-Ray 07/13/18 08:11 IMPRESSION: Again identified is bibasilar airspace disease with suspected small pleural effusions. This could be related to atelectasis or pneumonia. D/ / Jossue Perez MD / Jossue Perez MD Interpreting Provider: Jossue Perez MD - Attending Attestation I examined this patient and my medical decision-making was reviewed with the Resident Physician on 07/13/18. I agree with the documented findings, disposition and treatment plan as described except to the extent set forth below. Ms Patel is currently admitted for perforated gastric ulcer. Her WBC has been increasing. Ms Patel feels OK. No fever or chills. Remains on RA. Slight cough. CXR with ? bilateral infiltrates. Exam Alert Comfortable Mucus membranes dry Heart reg No wheeze or rhonchi No edema I/P 1. Leukocytosis - differential shows almost 10% eosinophils. CXR ? infiltrates but she is afebrile and on RA. Will d/c Ancef and start Cefepime. Recheck CBC with diff tomorrow. Transfer out of step down. 2. Perf gastric ulcer 3. HTN - controlled now. <LeyvaNellye - Last Filed: 07/13/18 14:46> (1) Perforated gastric ulcer Qualifiers: Gastric ulcer chronicity: acute Qualified Code(s): K25.1 - Acute gastric ulcer with perforation (3) Anxiety disorder Qualifiers: Anxiety disorder type: panic disorder without agoraphobia Qualified Code(s): F41.0 - Panic disorder [episodic paroxysmal anxiety] (4) Osteoarthritis Qualifiers: Osteoarthritis location: unspecified site Osteoarthritis type: primary Quali fied Code(s): M19.91 - Primary osteoarthritis, unspecified site (5) Hypertension Qualifiers: Hypertension type: essential hypertension Qualified Code(s): I10 - Essential (primary) hypertension (6) Diabetes Qualifiers: Diabetes mellitus type: type 2 Diabetes mellitus intermediate insulin use: without intermediate use Diabetes mellitus complication status: with unspecified complications Qualified Code(s): E11.8 - Type 2 diabetes mellitus with unspecified complications <Leland Goldstein - Last Filed: 07/13/18 18:25> (1) Perforated gastric ulcer Qualifiers: Gastric ulcer chronicity: acute Qualified Code(s): K25.1 - Acute gastric ulcer with perforation (2) Anxiety disorder Qualifiers: Anxiety disorder type: panic disorder without agoraphobia Qualified Code(s): F41.0 - Panic disorder [episodic paroxysmal anxiety] (3) Osteoarthritis Qualifiers: Osteoarthritis location: unspecified site Osteoarthritis type: primary Qualified Code(s): M19.91 - Primary osteoarthritis, unspecified site (4) Hypertension Qualifiers: Hypertension type: essential hypertension Qualified Code(s): I10 - Essential (primary) hypertension (5) Diabetes Qualifiers: Diabetes mellitus type: type 2 Diabetes mellitus intermediate insulin use: without inspector materials and processes use Diabetes mellitus complication status: with unspecified complications Qualified Code(s): E11.8 - Type 2 diabetes mellitus with unspecified complications (10) Pneumonia Qualifiers: Pneumonia type: due to other aerobic Gram-negative bacteria Laterality: bilateral Lung location: lower lobe of lung Qualified Code(s): J15.6 - Pneumonia due to other Gram-negative bacteria
--- NOTE | 2018-07-13 09:20 | General Surgery Progress Note ---
Date of Encounter: 07/13/18 Time of Encounter: 09:18 - Assessment and Plan (1) Perforated gastric ulcer Current Visit: Yes Status: Acute Imaging: -CT abd/pelvis 07/06/18 intraperitoneal air most likely from perforated gastric ulcer with moderate mural thickening of the gastric antrum, associated mild ascites and right pleural effusion -ct chest/abd/pelvis 07/08/18 inflammatory changes surrounding the stomach as well as pneumoperitoneum and ascites, most pronounced along the left lobe of the liver, compatible with history of gastric perforation, larger bilateral pleural effusions, moderate in size with increased atelectasis -UGI 07/11/2018 with focal out pocketing seen at the level of the distal stomach along the lesser curvature with surrounding areas of lunacy, consistent with gastric ulcer. There is no evidence of contrast extravasation of the side of the ulcer. NG d/c'd 07/11 and diet Advance diet to fulls, No carbonation, caffeine, tomato base, or chocolate diet. We will advance diet to soft today. Noted increase in WBC over the last two days. No clear abdominal source noted as she has no discomfort and is tolerating diet. Reviewed with christina Ibrahim to change antibitoics for pulmonary coverage as surgery would d/c Ancef today. Anticipate d/c in the next 24-48 hours pending clinical course (will d.c. when ok from hospitalist service) Plan: continue supportive care and discomfort management Soft diet, No caffeine, carbonation, tomato base, or chocolate OK to stop ancef, IV antibiotics per hospitalist for suspected PNA continue PPI BID change Carafate slurry to Carafate tablet Continue EP CDs and incentive spirometry AVOID NSAIDs She is scheduled for outpatient EGD with Dr. Pineda on 07/22/2018. The surgery office will call patient with time. Recommendations, risks, and benefits reviewed with the patient. 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 Qualifiers: Gastric ulcer chronicity: acute Qualified Code(s): K25.1 - Acute gastric ulcer with perforation (2) Shortness of breath Current Visit: Yes Status: Acute Management per hospitalist. We appreciate their assistance (3) Anxiety disorder Current Visit: Yes Status: Acute Patient takes chronic Xanex at home. May resume home dose per hospitalist Qualifiers: Anxiety disorder type: panic disorder without agoraphobia Qualified Code(s): F41.0 - Panic disorder [episodic paroxysmal anxiety] (4) Osteoarthritis Current Visit: Yes Status: Acute Avoid NSAIDs PRN pain control Qualifiers: Osteoarthritis location: unspecified site Osteoarthritis type: primary Qualified Code(s): M19.91 - Primary osteoarthritis, unspecified site (5) Hypertension Current Visit: Yes Status: Acute PRN antihypertensives Qualifiers: Hypertension type: essential hypertension Qualified Code(s): I10 - Essential (primary) hypertension (6) Diabetes Current Visit: Yes Status: Acute Q6 Accu checks sliding scale insulin Managment per hospitalist Qualifiers: Diabetes mellitus type: type 2 Diabetes mellitus mcc insulin use: without mcc use Diabetes mellitus complication status: with unspecified complications Qualified Code(s): E11.8 - Type 2 diabetes mellitus with unspecified complications (7) Uterine mass Current Visit: Yes Status: Acute CT abdomen and pelvis with IV contrast notes the large mass involving the uterus with mixed density, measuring just over 10 cm, primarily involving the endometrial canal with the rind of [place] drama., Urinary bladder is compressed inferior the, small amount of pelvic fluid. Of note she did have a pelvic MRI in October 2015 which demonstrated an enlarged uterus at 14.6 x 12 x 11.5 cm and a large dominant uterine fibroids measuring 10.3 x 9.8 x 10.7 cm. Per record review, she saw Dr. Baeza 05/11/2016 at which time he noted the uterine mass and that her "uterus has been 14 to 16 weeks size for years." He recommended an ultrasound to compare to the MRI but the patient refused. Plan: Consult was placed to OB (Spoke with Lucy Menendez CNM) for asst vs imaging review and outpatient follow-up placed. Recommendations pending Subjective Narrative: Taylor denies abdominal pain. She reports pain with inspiration in the right mid flank. She reports cough with productive sputum that is clear yellow. She states that feels harder to breathe. She endorses that she has been using her incentive spirometry as directed. Objective Vital Signs - Last 8 Hours Temp Pulse Resp BP Pulse Ox 07/13/18 08:08 106 07/13/18 08:04 107 20 90 07/13/18 07:37 98.7 F 100 18 126/71 89 07/13/18 04:03 16 96 07/13/18 03:30 98.2 F 92 18 128/70 89 Intake and Output 07/12/18 07/13/18 07/13/18 23:59 07:59 15:59 Intake Total 660 / 660 100 / 100 120 / 120 Output Total 600 / 600 475 / 475 Balance 60 / 60 100 / 100 -355 / -355 Intake: IV Fluids 420 / 420 100 / 100 Clinimix E 5%-15% SOLUTION 2, 320 / 320 000 ML @ 70 mls/hr IVC .Q24H NOLAN with M.v.i. Adult 10 ml Rx# :[id number] Ancef 2,000 MG In 0.9 % Sodium 100 / 100 100 / 100 Chloride 100 ML @ 200 mls/hr IVPB Q8HR NOLAN Rx#:[id number] Oral 240 / 240 120 / 120 Output: Urine 600 / 600 475 / 475 Other: Meal Dinner Breakfast Percent of Meal Consumed 5% 10% Weight 97.8 kg Blood Glucose* 160 119 Patient Weight 07/13/18 23:59 Weight 97.8 kg - General physical appearance no distress (sitting upright in chair at bedside) - Eyes normal ocular movement - ENT normal nares, atraumatic, normocephalic - Neck Neck exam: trachea midline - Respiratory other (Decreaed, course crackles right basse ) - Cardiovascular Cardiovascular exam: Present: tachycardia - Abdomen Abdomen: Present: bowel sounds present, soft, non tender Hernia: none - Integumentary no rash - Neurologic normal coordination, normal sensation - Musculoskeletal normal posture - Psychiatric oriented to time, oriented to person, oriented to place, speech is normal, memory intact - Labs 07/13/18 03:30 07/13/18 03:30 Diabetes panel 07/13/18 Range/Units 03:30 Sodium 135 L (136-145) mEq/L Potassium 3.9 (3.5-5.1) mEq/L Chloride 99 (98-107) mEq/L Carbon Dioxide 29 (23-29) mEq/L BUN 26 H (8-23) mg/dL Creatinine 0.65 (0.60-1.20) mg/dL Glucose 113 H (70-105) mg/dL Calcium 9.1 (8.6-10.3) mg/dL Calcium panel 07/13/18 Range/Units 03:30 Calcium 9.1 (8.6-10.3) mg/dL Pituitary panel 07/13/18 Range/Units 03:30 Sodium 135 L (136-145) mEq/L Potassium 3.9 (3.5-5.1) mEq/L Chloride 99 (98-107) mEq/L Carbon Dioxide 29 (23-29) mEq/L BUN 26 H (8-23) mg/dL Creatinine 0.65 (0.60-1.20) mg/dL Glucose 113 H (70-105) mg/dL Calcium 9.1 (8.6-10.3) mg/dL Adrenal panel 07/13/18 Range/Units 03:30 Sodium 135 L (136-145) mEq/L Potassium 3.9 (3.5-5.1) mEq/L Chloride 99 (98-107) mEq/L Carbon Dioxide 29 (23-29) mEq/L BUN 26 H (8-23) mg/dL Creatinine 0.65 (0.60-1.20) mg/dL Glucose 113 H (70-105) mg/dL Calcium 9.1 (8.6-10.3) mg/dL Consult Discharge Plan - Plan Instructions: Diet for Ulcers and Gastritis (GEN), Pneumonia (DC) Referrals: Ruba Perkins MD [Primary Care Provider] - 07/18/18 1:30 pm (Please follow up with Dr. Rey) Bill Pineda DO [Partnered Physician] - 07/18/18 2:45 pm (hosp f/u and EGD results)
[2018-07-13] MEDS: Cefepime HCl 1,000 MG in Water for inj. (sterile) 20 ML 10 ML IVP SCH (16:36)
[2018-07-14] MEDS: Cefepime HCl 1,000 MG in Water for inj. (sterile) 20 ML 10 ML IVP SCH ×2 (00:09→07:53)
[2018-07-14] MEDS: OXYCODONE Oral CONC 10 MG/0.5 ML ORAL.SYG SL PRN ×2 (02:55→11:14)
[2018-07-14 03:29] LABS: Basophils # 0.1 K/mcL (0.0-0.2); Basophils % 0.5 %; Eosinophils # 0.6 K/mcL (0.0-0.6); Eosinophils % 5.8 %; Hematocrit 32.5 % (35.3-44.9); Hemoglobin 10.3 g/dL (11.5-15.4); Immature Granulocytes % 2.3 % (0-4); Lymphocytes # 2.4 K/mcL (0.6-4.6); Lymphocytes % 21.8 %; Mean Corpuscular HGB Conc 31.7 g/dL (31.6-35.5); Mean Corpuscular Hemoglobin 27.4 pg (28.0-33.3); Mean Corpuscular Volume 86.4 fL (83.0-100.0); Mean Platelet Volume 8.6 fL (9.4-12.4); Monocytes % 8.7 %; Neutrophils # 6.8 K/mcL (1.6-8.9); Platelet Count 408 K/mcL (140-400); Red Blood Count 3.76 M/mcL (3.82-4.97); Red Cell Distribution Width 14.3 % (11.5-14.5); Segmented Neutrophils % 60.9 %
[2018-07-14 03:47] LABS: BUN/Creatinine Ratio 42 (6-26); Blood Urea Nitrogen 26 mg/dL (8-23); Carbon Dioxide 28 mEq/L (23-29); Chloride 101 mEq/L (98-107); Glucose 109 mg/dL (70-105); Osmolality,Calculated 289 (280-300); Sodium 137 mEq/L (136-145); eGFR For Non-African Americans > 60 (> 60)
[2018-07-14 04:00] LABS: Platelet Estimate Increased (Normal); Reactive Lymphocytes Present (Not Present)
[2018-07-14] MEDS: Levalbuterol Neb 0.63 MG/3 ML IH SCH ×2 (04:03→11:12)
[2018-07-14] MEDS: *HR* Heparin 5,000 UNIT/ML VIAL SQ SCH (05:38)
[2018-07-14 07:52] VITALS: BP 142/74
[2018-07-14] MEDS: Losartan/HCTZ 50-12.5 TABLET PO SCH (07:54)
[2018-07-14] MEDS: Pantoprazole 40 MG VIAL IVP SCH (07:54)
[2018-07-14] MEDS: Sucralfate 1 GM TABLET PO SCH ×2 (07:54→12:16)
--- NOTE | 2018-07-14 07:57 | Internal Med Progress Note ---
<Gus Fernandez - Last Filed: 07/14/18 15:30> Hospitalist Progress Note - Encounter Date of Encounter: 07/14/18 Time of Encounter: 09:50 - Subjective Interval History: 07/14 Recommending 10 total days of Augmentin for HAP; will do 6 min walk today (she is a non-smoker, denies occupational exposure, but she has low tidal volumes mathtew pite incentive spirometry training, and prior to PNA), recommend PFTs outpatient; we will sign-off at this time, thank you for the consult, please vocera/reconsult if needed. 07/12 Patient continues to do well on room air, she is tolerating advancement of her diet, I/Os have been adequate; patient stable from respiratory standpoint. Her white count did increase today, but her UA is negative, no fevers, no shortness of breath. 07/11 Patient is seen and evaluated in chair next to bed. She states that she has less abdominal pain, denies fevers. We practice incentive spirometry during our encounter, she denies shortness of breath but she also demonstrates somewhat limited tidal volumes. She has come back from her upper GI follow-through this morning. No evidence of extravasation on imaging she will be transitioned to clears today. - Exam Vitals: Temp Pulse Resp BP Pulse Ox 98.5 F 96 16 142/74 90 07/14/18 07:50 07/14/18 07:50 07/14/18 07:50 07/14/18 07:50 07/14/18 07:50 Exam: Gen.: Vitals noted. No acute distress. AAOx3 HEENT: oropharynx clear, Normocephalic, atraumatic, NG tube in place Cardiac: RRR, no murmur, +S1/S2, non-pitting lower extremity edema Pulmonary: CTA bilaterally, no wheezes, rales or rhonchi, equal chest expansion but rather limited Abdomen: soft, nontender, Bowel sounds noted, no guarding MSK: ROM intact, no joint swelling noted Extremities: nontender calf, no cyanosis or clubbing Neuro: A&Ox3, moves all extremities, no focal deficits Psych: Appropriate mood and behavior, fair insight . - Assessment and Plan (1) Pneumonia Status: Acute Assessment and Plan: Pneumonia demonstrated by new chest x-ray 07/13. Imaging demonstrating by basilar airspace disease with suspected pleural effusion likely related to atelectasis or pneumonia. This is most likely hospital acquired pneumonia as she has been admitted for over 5 days. Remains afebrile WBC 11.1 (12.9, 13.6) Can be transitioned to oral antibiotic, recommend Augmentin to complete 10 day course. Will sign off, thank you for the consult; patient stable from respiratory standpoint for outpatient therapy, to be discharged per primary team. (2) Perforated gastric ulcer Status: Acute Assessment and Plan: Secondary to chronic NSAID use, patient admitted to taking meloxicam for her osteoarthritis. Abdominal CT demonstrating perforated gastric ulcer. Also noted a large uterine mass. -Management continues to be per primary surgical team. Stable for discharge according to surgery. -patient is on Protonix, carafate, Phenergan -tolerating diet well -incidental imaging finding:per medical records patient is aware of uterine mass and follows with Dr. Baeza [facility]. (3) Pleural effusion Status: Acute Assessment and Plan: Repeat chest x-ray demonstrated small pleural effusion. Chest CT demonstrates pleural effusion and bibasilar atelectasis patient denies shortness of breath. She does report clear sputum production. Lung examination now clear stable for discharge, resume PO diet per surgery, no need for continued diuresis outpatient (4) Anxiety disorder Status: Acute Assessment and Plan: chronic, was continued on her home benzo (5) Osteoarthritis Status: Acute Assessment and Plan: Pain management now per PCP; avoidance of NSAIDs per primary and consult team due to recent perforated viscous (6) Hypertension Status: Acute Assessment and Plan: chronic, home meds resumed, normotensive (7) Diabetes Status: Acute Assessment and Plan: ADA diet inpatient, with SSI; continue Metformin outpatient (8) DVT prophylaxis Status: Acute Assessment and Plan: SQ heparin inpatient - Time Spent with Patient Total time spent is greater than 50% in coordination of care (as documented) at patient's floor/unit and/or counseling patient: Internal Medicine: Result - Labs CBC & Chem 7: 07/14/18 03:01 07/14/18 03:01 Labs: Short CBC 07/14/18 Range/Units 03:01 WBC 11.1 (4.3-11.1) K/mcL Hgb 10.3 L (11.5-15.4) g/dL Hct 32.5 L (35.3-44.9) % Plt Count 408 H (140-400) K/mcL Neutrophils # 6.8 (1.6-8.9) K/mcL BMP 07/14/18 03:01 Sodium 137 Potassium 4.0 Chloride 101 Carbon Dioxide 28 BUN 26 H Creatinine 0.62 Glucose 109 H Calcium 9.0 - ABG Interpretation ABG results: PT/INR, D-dimer PT 13.2 Seconds (9.4-12.1) H 07/08/18 19:03 - Impressions Impressions Chest X-Ray 07/13/18 08:11 IMPRESSION: Again identified is bibasilar airspace disease with suspected small pleural effusions. This could be related to atelectasis or pneumonia. D/ / Jossue Perez MD / Jossue Perez MD Interpreting Provider: Jossue Perez MD Consult Discharge Plan - Plan Instructions: Sucralfate (By mouth), Albuterol (By breathing), Guaifenesin (By mouth), Omeprazole (By mouth), Amoxicillin/Clavulanate Potassium (By mouth), Diet for Ulcers and Gastritis (GEN), Pneumonia (DC) Additional Instructions: Take Prilosec/omeprazole twice daily every day. Take Carafate before every meal and at bedtime (4 times daily) Do not take NSAIDs (naproxen, ibuprofen, Advil, Motrin, meloxicam, Celebrex, or aspirin). You can return to your regular diet with the exception of do not consume caffeine, carbonation, chocolate, or tomato base products such as spaghetti sauce, tomato soup, chili. Your EGD is scheduled with Dr. Pineda on 07/22/2018. The surgery schedulers in his office will call you approximately 24 hours prior to your surgery date to give you the your arrival time. Eat a light dinner on 07/21/2018. Do not eat or drink anything after midnight Referrals: Bill Pineda, [Partnered Physician] - 07/22/18 (For outpatient EGD at [facility]. Surgery schedulers will call you 24-hours prior to surgery for arrival time. ) Ruba Perkins MD [Primary Care Provider] - 07/18/18 1:30 pm (Please follow up with Dr. Rey) Murtaza López MD [Partnered Physician] - Prescriptions: Albuterol Sulfate [Ventolin Hfa] 8 gm IH Q4HR PRN #1 [id number] PRN Reason: Shortness Of Breath Amoxicillin/Clavulanate [Augmentin] 875 mg PO BIDWM 14 Days #28 tablet RX: GuaiFENesin ER [Mucinex] 600 mg PO BID PRN #14 tbbp.12hr PRN Reason: Congestion RX: Omeprazole [PriLOSEC] 40 mg PO BID #60 cap RX: Sucralfate [Carafate] 1 gm PO QIDAC 30 Days #120 tablet <Leland Goldstein - Last Filed: 07/14/18 19:12> Hospitalist Progress Note - Encounter Date of Encounter: 07/14/18 - Exam Vitals: Temp Pulse Resp BP Pulse Ox 98.5 F 96 16 142/74 95 07/14/18 07:50 07/14/18 07:50 07/14/18 11:12 07/14/18 07:50 07/14/18 11:12 - Assessment and Plan (1) Perforated gastric ulcer Status: Acute (2) Anxiety disorder Status: Acute (3) Osteoarthritis Status: Acute (4) Hypertension Status: Acute (5) Diabetes Status: Acute (6) Pleural effusion Status: Acute (7) DVT prophylaxis Status: Acute (8) Tachycardia Status: Acute (9) Hypophosphatemia Status: Acute (10) Pneumonia Status: Acute - Time Spent with Patient Total time spent is greater than 50% in coordination of care (as documented) at patient's floor/unit and/or counseling patient: Internal Medicine: Result - Labs CBC & Chem 7: 07/14/18 03:01 07/14/18 03:01 Labs: Short CBC 07/14/18 Range/Units 03:01 WBC 11.1 (4.3-11.1) K/mcL Hgb 10.3 L (11.5-15.4) g/dL Hct 32.5 L (35.3-44.9) % Plt Count 408 H (140-400) K/mcL Neutrophils # 6.8 (1.6-8.9) K/mcL BMP 07/14/18 03:01 Sodium 137 Potassium 4.0 Chloride 101 Carbon Dioxide 28 BUN 26 H Creatinine 0.62 Glucose 109 H Calcium 9.0 - ABG Interpretation ABG results: PT/INR, D-dimer PT 13.2 Seconds (9.4-12.1) H 07/08/18 19:03 - Attending Attestation I examined this patient and my medical decision-making was reviewed with the Resident Physician on 07/14/18. I agree with the documented findings, disposition and treatment plan as described except to the extent set forth below. Ms Jorge has been hospitalized for perforation of stomach ulcer. She is tolerating diet. She was treated for presumed pneumonia and her WBC improved. She does not need oxygen. She is OK for discharge home. Exam alert Comfortable Mucus membranes dry Heart reg No wheeze now Abd soft I/P 1. Pneumonia 2. HTN OK for discharge home. <Gus Fernandez - Last Filed: 07/14/18 15:30> (1) Pneumonia Qualifiers: Pneumonia type: due to other aerobic Gram-negative bacteria Laterality: noel ateral Lung location: lower lobe of lung Qualified Code(s): J15.6 - Pneumonia due to other Gram-negative bacteria (2) Perforated gastric ulcer Qualifiers: Gastric ulcer chronicity: acute Qualified Code(s): K25.1 - Acute gastric ulcer with perforation (4) Anxiety disorder Qualifiers: Anxiety disorder type: panic disorder without agoraphobia Qualified Code(s): F41.0 - Panic disorder [episodic paroxysmal anxiety] (5) Osteoarthritis Qualifiers: Osteoarthritis location: unspecified site Osteoarthritis type: primary Qualified Code(s): M19.91 - Primary osteoarthritis, unspecified site (6) Hypertension Qualifiers: Hypertension type: essential hypertension Qualified Code(s): I10 - Essential (primary) hypertension (7) Diabetes Qualifiers: Diabetes mellitus type: type 2 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 Diabetes mellitus complication status: with unspecified complications Qualified Code(s): E11.8 - Type 2 diabetes mellitus with unspecified complications <Leland Goldstein - Last Filed: 07/14/18 19:12> (1) Perforated gastric ulcer Qualifiers: Gastric ulcer chronicity: acute Qualified Code(s): K25.1 - Acute gastric ulcer with perforation (2) Anxiety disorder Qualifiers: Anxiety disorder type: panic disorder without agoraphobia Qualified Code(s): F41.0 - Panic disorder [episodic paroxysmal anxiety] (3) Osteoarthritis Qualifiers: Osteoarthritis location: unspecified site Osteoarthritis type: primary Qualified Code(s): M19.91 - Primary osteoarthritis, unspecified site (4) Hypertension Qualifiers: Hypertension type: essential hypertension Qualified Code(s): I10 - Essential (primary) hypertension (5) Diabetes Qualifiers: Diabetes mellitus type: type 2 Diabetes mellitus retirement insulin use: without retirement use Diabetes mellitus complication status: with unspecified complications Qualified Code(s): E11.8 - Type 2 diabetes mellitus with unspecified complications (10) Pneumonia Qualifiers: Pneumonia type: due to other aerobic Gram-negative bacteria Laterality: bilateral Lung location: lower lobe of lung Qualified Code(s): J15.6 - Pneumonia due to other Gram-negative bacteria
[2018-07-14] MEDS: Insulin LISPRO 300 UNITS/3 ML VIAL SQ SCH ×2 (08:06→12:05)
--- NOTE | 2018-07-14 09:22 | Discharge Summary ---
Date of Encounter: 07/14/18 Time of Encounter: 09:50 - Discharge Diagnosis (1) Perforated gastric ulcer Priority: Primary Status: Acute Qualifiers: Gastric ulcer chronicity: acute Qualified Code(s): K25.1 - Acute gastric ulcer with perforation (2) Shortness of breath Priority: Secondary Status: Acute (3) Anxiety disorder Priority: Secondary Status: Acute Qualifiers: Anxiety disorder type: panic disorder without agoraphobia Qualified Code(s): F41.0 - Panic disorder [episodic paroxysmal anxiety] (4) Osteoarthritis Priority: Secondary Status: Acute Qualifiers: Osteoarthritis location: unspecified site Osteoarthritis type: primary Qualified Code(s): M19.91 - Primary osteoarthritis, unspecified site (5) Hypertension Priority: Secondary Status: Acute Qualifiers: Hypertension type: essential hypertension Qualified Code(s): I10 - Essential (primary) hypertension (6) Diabetes Priority: Secondary Status: Acute Qualifiers: Diabetes mellitus type: type 2 Diabetes mellitus manager academic insulin use: without manager academic use Diabetes mellitus complication status: with unspecified complications Qualified Code(s): E11.8 - Type 2 diabetes mellitus with unspecified complications (7) Uterine mass Priority: Secondary Status: Acute Comments: Follow-up with OB as outpatient (8) Pneumonia Priority: Secondary Status: Acute Qualifiers: Pneumonia type: due to other aerobic Gram-negative bacteria Laterality: bilateral Lung location: lower lobe of lung Qualified Code(s): J15.6 - Pneumonia due to other Gram-negative bacteria General Surgery Exam Initial Vital Signs Temp Pulse Resp BP Pulse Ox 98.3 F 68 18 157/74 95 07/06/18 07:42 07/06/18 07:42 07/06/18 07:42 07/06/18 07:42 07/06/18 07:42 Vital Signs Temp Pulse Resp BP Pulse Ox 07/14/18 07:50 98.5 F 96 16 142/74 90 07/14/18 04:03 16 91 07/14/18 03:20 98.3 F 82 18 127/66 90 07/14/18 03:01 86 18 90 07/14/18 00:11 86 07/13/18 23:10 16 92 07/13/18 22:40 98.0 F 89 18 143/72 94 07/13/18 20:41 86 07/13/18 19:46 98.2 F 89 18 128/76 92 07/13/18 18:23 91 20 95 07/13/18 16:43 88 18 117/69 97 07/13/18 16:39 98.1 F 83 18 117/69 07/13/18 15:54 16 91 07/13/18 11:51 86 07/13/18 11:48 98.4 F 87 20 103/57 92 07/13/18 10:43 16 92 07/13/18 10:36 85 20 92 Intake and Output 07/13/18 07/14/18 07/14/18 23:59 07:59 15:59 Intake Total 130 / 130 Output Total 1200 / 1200 Balance -1070 / -1070 Intake: IV Fluids Maxipime 1,000 MG In Water for inj. (sterile) 10 ML @ 300 mls/ hr IVP Q8HR NOLAN Rx#:[id number] Oral 120 / 120 Output: Urine 1200 / 1200 Other: Meal Dinner Percent of Meal Consumed 50% Weight 96.3 kg Blood Glucose* 163 102 Patient Weight 07/14/18 23:59 Weight 96.3 kg - ENT normal nares, normal mucosa, poor intermediate - Neck trachea midline - Respiratory normal expansion, normal respiratory effort, clear to auscultation - Cardiovascular Cardiovascular exam: Present: RRR - Abdomen Abdomen general surgery: Present: bowel sounds present, soft, non tender - Integumentary Integumentary general surgery: Present: warm and dry, no abnormal pigmentation - Neurologic Present: CN 2-12 grossly intact, normal coordination, normal sensation - Musculoskeletal Present: normal gait, normal posture - Psychiatric Psychiatric general surgery: Present: A&Ox3, appropriate, oriented to person, oriented to place, oriented to time, speech is normal, memory intact - Hospital Course Hospital course: Ms. Patel is a 67 year old female who presented for abdominal pain on 07/06/2018. She was noted to have a perforated gastric ulcer likely related to long-term all locks exam use. She was treated with supportive care, 7 days of Ancef, an NG, and bowel rest. Her abdominal discomfort quickly resolved. Her hospital course was complicated by right lower lobe pneumonia for which the hospitalist was consult it. Her white blood cell count has normalized. She is ambulating and voiding without difficulty, tolerating a diet without nausea or vomiting, vital signs are stable, and she is afebrile. We will begin discharge planning to home with follow-up on July 22, 2018 with a scheduled EGD with Dr. Pineda. She will also need follow-up with Dr. Baeza to review incidental imaging noting stable uterine fibroids - Time Spent with Patient Total time spent providing and/or coordinating discharge services: - Discharge Medications Prescriptions: Albuterol Sulfate [Ventolin Hfa] 8 gm IH Q4HR PRN #1 hfa.aer.ad PRN Reason: Shortness Of Breath Amoxicillin/Clavulanate [Augmentin] 875 mg PO BIDWM 14 Days #28 tablet GuaiFENesin ER [Mucinex] 600 mg PO BID PRN #14 tbbp.12hr PRN Reason: Congestion Omeprazole [PriLOSEC] 40 mg PO BID #60 cap Sucralfate [Carafate] 1 gm PO QIDAC 30 Days #120 tablet Home Medications: ALPRAZolam [Xanax 0.5 MG Tablet] 0.5 mg PO BID PRN 07/06/18 [History] Atenolol [Tenormin] 50 mg PO DAILY 07/06/18 [History] Losartan/Hydrochlorothiazide [Hyzaar 100-25 Tablet] 1 tab PO DAILY 07/06/18 [History] Multivit-Min/FA/Lycopen/Lutein [A Thru Z Select Multivit Tab] 1 tab PO DAILY 07/06/18 [History] Simvastatin [Zocor] 20 mg PO QPM 07/06/18 [History] metFORMIN [Glucophage] 500 mg PO BIDWM 07/06/18 [History] Albuterol Sulfate [Ventolin Hfa] 8 gm IH Q4HR PRN #1 hfa.aer.ad 07/14/18 [Rx] Amoxicillin/Clavulanate [Augmentin] 875 mg PO BIDWM 14 Days #28 tablet 07/14/18 [Rx] GuaiFENesin ER [Mucinex] 600 mg PO BID PRN #14 tbbp.12hr 07/14/18 [Rx] Omeprazole [PriLOSEC] 40 mg PO BID #60 cap 07/14/18 [Rx] Sucralfate [Carafate] 1 gm PO QIDAC 30 Days #120 tablet 07/14/18 [Rx] Allergies/Adverse Reactions: Allergy/AdvReac Type Severity Reaction Status Date / Time NSAIDS (Non-Steroidal Allergy See Verified 07/14/18 09:49 Anti-Inflamma Comments lisinopril AdvReac Cough Verified 07/06/18 07:47 meloxicam AdvReac Gastrointestinal Verified 07/14/18 09:47 Upset naproxen AdvReac Abdominal Verified 07/06/18 07:47 Pain Date of admission: 07/06/18 13:16 Primary care physician: Ruba Perkins MD Consults: 07/06/18 11:17 Consult to Surgery [CONS] Stat Consulting Provider: Surgery [facility] Reason for Consult: perforated gastric ulcer Time Notified: 11:20 Call Completed: Yes 07/07/18 10:20 Consult to Invasive Line Access Team [CONS] Routine Reason for Consult: Picc Line Insertion Line Type: PICC PICC line indications: Parental nutrition consult to garment finisher [Consult to Nutrition] [CONS] Routine Comment: Consulting Provider: NUTRITION Reason for Dietary Consult: TPN Start and Manage 07/07/18 19:16 Consult to Wound Care [CONS] Routine Reason for Consult: bilateral feet Call Completed: No 07/08/18 13:17 Consult to Respiratory Therapy [CONS] Stat Reason for Consult: Musical lungs Aggressive pulm toileting Time Notified: 13:17 Call Completed: Yes 07/08/18 15:43 Consult to Hospitalist [CONS] Stat Consulting Provider: Hospitalist Yusuf Reason for Consult: chronic condition and pulm management; spoke with Dr. Penny Time Notified: 15:44 Call Completed: Yes 07/11/18 13:32 Consult to INBOUND CUSTOMER SERVICE AGENT [CONS] Routine Consulting Provider: MANAGER MBA Iva Reason for Consult: uterine mass; known fibroid Time Notified: 13:33 Call Completed: Yes Discharging clinician: Luli Hauser Anticipated date of discharge: 07/14/18 Labs on day of discharge: Labs from last 24 hours 07/14/18 07/14/18 07/13/18 03:01 03:01 19:49 WBC 11.1 RBC 3.76 L Hgb 10.3 L Hct 32.5 L MCV 86.4 MCH 27.4 L MCHC 31.7 RDW 14.3 Plt Count 408 H MPV 8.6 L Immature Gran % 2.3 Seg Neutrophils % 60.9 Lymphocytes % 21.8 Monocytes % 8.7 Eosinophils % 5.8 Basophils % 0.5 Neutrophils # 6.8 Lymphocytes # 2.4 Monocytes # 1.0 Eosinophils # 0.6 Basophils # 0.1 Reactive Lymphocytes Present A Platelet Estimate Increased H Sodium 137 Potassium 4.0 Chloride 101 Carbon Dioxide 28 BUN 26 H Creatinine 0.62 Est GFR ( Amer) > 60 Est GFR (Non-Af Amer) > 60 BUN/Creatinine Ratio 42 H Glucose 109 H POC Glucose 163 H Calculated Osmolality 289 Calcium 9.0 07/13/18 07/13/18 07/13/18 16:43 11:54 07:41 WBC RBC Hgb Hct MCV MCH MCHC RDW Plt Count MPV Immature Gran % Seg Neutrophils % Lymphocytes % Monocytes % Eosinophils % Basophils % Neutrophils # Lymphocytes # Monocytes # Eosinophils # Basophils # Reactive Lymphocytes Platelet Estimate Sodium Potassium Chloride Carbon Dioxide BUN Creatinine Est GFR ( Amer) Est GFR (Non-Af Amer) BUN/Creatinine Ratio Glucose POC Glucose 113 H 170 H 119 H Calculated Osmolality Calcium - Impressions ITS Impressions Abdomen/Pelvis CT 07/06/18 08:27 IMPRESSION: Intraperitoneal free air most likely from perforated gastric ulcer with moderate mural thickening of the gastric antrum. Associated mild ascites and right pleural effusion. Large uterine mass with mixed density primarily central. While this could represent a large degenerating fibroid, uterine or endometrial malignancy should also be considered. Further evaluation with pelvic ultrasound or MRI is recommended when feasible. Subtle higher density material layering dependently within the gallbladder possible noncalcified stones or sludge. Findings were discussed with Dr. Johansen, the resident working with Dr. Tomás Alvarez at 10:36 am on 07/06/2018. D/ / Kip Bansal MD / Kip Bansal MD Interpreting Provider: Kip Bansal MD Chest X-Ray 07/06/18 08:37 IMPRESSION: Worsening appearance of left basilar consolidation compared to prior of 07/06/2018. D/ / Jaison Guevara / Jaison Guevara Interpreting Provider: Jaison Guevara X-Ray 07/06/18 13:58 IMPRESSION: The NG tube tip is located near the gastric antrum. D/ / 07/06/2018 14:54:19 Cullen Mata MD / earnold Interpreting Provider: Cullen Mata MD Chest X-Ray 07/08/18 13:15 IMPRESSION: 1. Right-sided PICC terminates in the SVC. 2. Bibasilar airspace disease could represent atelectasis or pneumonia. D/ / 07/08/2018 14:20:56 Lonny Chaudhari MD / Misty Aguero Interpreting Provider: Lonny Chaudhari MD Chest CT 07/08/18 15:15 IMPRESSION: 1. There are inflammatory changes surrounding the stomach as well as pneumoperitoneum and ascites, most pronounced along the left lobe of the liver. This is compatible with the history of a gastric perforation. 2. Mild bilateral hydronephrosis. 3. Complicated enlarged uterine fibroid measuring 10.6 x 10.4 cm. Pelvic MRI with IV contrast may be of benefit for further evaluation. 4. Larger bilateral pleural effusions, moderate in size, with increased atelectasis in the lung bases. 5. Atherosclerotic disease. D/ / 07/08/2018 17:01:31 Cullen Mata MD / ole Interpreting Provider: Cullen Mata MD Abdomen/Pelvis CT 07/08/18 15:16 IMPRESSION: 1. There are inflammatory changes surrounding the stomach as well as pneumoperitoneum and ascites, most pronounced along the left lobe of the liver. This is compatible with the history of a gastric perforation. 2. Mild bilateral hydronephrosis. 3. Complicated enlarged uterine fibroid measuring 10.6 x 10.4 cm. Pelvic MRI with IV contrast may be of benefit for further evaluation. 4. Larger bilateral pleural effusions, moderate in size, with increased atelectasis in the lung bases. 5. Atherosclerotic disease. D/ / 07/08/2018 17:01:31 Cullen Mata MD / ole Interpreting Provider: Cullen Mata MD Upper GI Series 07/11/18 08:09 IMPRESSION: Focal outpocketing at level of lesser curvature of stomach suggestive of gastric ulcer with surrounding mucosal edema. Direct visualization may be warranted for further evaluation. No evidence of contrast extravasation at site of ulcer. D/ / Deven Bennett / Deven Bennett Interpreting Provider: Deven Bennett Chest X-Ray 07/13/18 08:11 IMPRESSION: Again identified is bibasilar airspace disease with suspected small pleural effusions. This could be related to atelectasis or pneumonia. D/ / Jossue Perez MD / Jossue Perez MD Interpreting Provider: Jossue Perez MD - Patient Status Disposition: Home, Self-Care Condition: Fair Overall status at discharge: patient is progressing back to baseline - Discharge Instructions Instructions: Diet for Ulcers and Gastritis (GEN), Pneumonia (DC) Follow Up With: Bill Pineda DO [Partnered Physician] - 07/22/18 (For outpatient EGD at [facility]. Surgery schedulers will call you 24-hours prior to surgery for arrival time. ) Ruba Perkins MD [Primary Care Provider] - 07/18/18 1:30 pm (Please follow up with Dr. Rey) Murtaza López MD [Partnered Physician] - Additional Instructions: Take Prilosec/omeprazole twice daily every day. Take Carafate before every meal and at bedtime (4 times daily) Do not take NSAIDs (naproxen, ibuprofen, Advil, Motrin, meloxicam, Celebrex, or aspirin). You can return to your regular diet with the exception of do not consume caffeine, carbonation, chocolate, or tomato base products such as spaghetti sauce, tomato soup, chili. Your EGD is scheduled with Dr. Pineda on 07/22/2018. The surgery schedulers in his office will call you approximately 24 hours prior to your surgery date to give you the your arrival time. Eat a light dinner on 07/21/2018. Do not eat or drink anything after midnight - Diet and Activity Activity: increase activity as tolerated Diet: other (No caffeine, carbonation, chocolate, or tomato base.)
== END 2018-07-14 12:58 | disposition home or self-care (01) | DRG 380 ==
LOC: EMEROOARM 07:35 → 2ANU 07:35 → SUATTDRO 13:16 → 2NNU 07-08 16:49
PROVIDERS: ADMIT Surgery; ATTEND Internal Medicine